=== PATIENT | female | born 1955 | race Caucasian/White ===

== ENCOUNTER 2018-03-18 10:32 | Day surgery (SDC) | payer MEDICARE, OTHER ==
[2018-03-14 09:56] VITALS: BMI 35.4
[~2018-03-18 10:32] MED LIST: SODIUM CHLORIDE 0.9% 1,000 ML IV SCH; ceFAZolin IN SWFI 2 GM/20 ML SYRINGE IVP ONE
[2018-03-18 11:10] VITALS: RESP 16; TEMP 97.9
[2018-03-18] MEDS ORDERED: SODIUM CHLORIDE 0.9% 500 ML 500 ML IV ONE (11:17)
[2018-03-18 11:32] LABS: HGB 9.6 gm/dL (11.4-16.0); Hypochromasia Marked; MCH 22.4 pg (25.0-35.0); MCHC 30.1 g/dL (31.0-37.0); MCV 74.5 fL (80.0-100.0); Microcytosis Slight; Platelet Count 363 k/uL (150-450); RDW 15.3 % (11.5-15.5); WBC 11.4 k/uL (3.8-10.6)
[2018-03-18 11:45] LABS: Anion Gap 6 mmol/L; Blood Urea Nitrogen 19 mg/dL (7-17); Carbon Dioxide 26 mmol/L (22-30); Chloride 107 mmol/L (98-107); Glucose 89 mg/dL (74-99); Sodium 139 mmol/L (137-145)
[2018-03-18 11:56] LABS: Potassium 5.9 mmol/L (3.5-5.1)
[2018-03-18] MEDS ORDERED: fentaNYL (PF) 50 MCG/ML 2 ML AMP IV ONE (13:04)
[2018-03-18] MEDS ORDERED: LIDOCAINE 1% (PF) 10MG/ML VIAL SQ ONE (13:09)
--- NOTE | 2018-03-18 13:33 | P.PCN ---
Preoperative Diagnosis: Diagnosis Atrial fibrillation, paroxysmal Loop monitor implant Primary physicians: Dr. Vega Dental Office Assistant: Dr. Mariee Indication: A. fib management Patient was brought to the EP lab in a fasting state. Written informed consent was obtained prior to the procedure. The left pectoral area was prepped and draped per protocol. Intravenous antibiotic was administered preoperatively. A subcutaneous Loop monitor was implanted successfully and the wound was closed per protocol. The device was programmed to detect significant capri- arrhythmic and tachy-arrhythmic events, per protocol. Device and programming details: A. fib detection Patient underwent EP procedure under conscious sedation/moderate sedation, monitoring of the level of consciousness and physiologic parameters including but not limited to vital signs and oxygenation. Patient tolerated the procedure well without any acute complications. Start time: 1307 Stop time: 1316 Disposition: same day
[2018-03-18 14:40] VITALS: PULSE 75
[2018-03-18 14:41] VITALS: BP 127/70
--- NOTE | 2018-03-20 11:04 | P.PRLE ---
RE: Eva De Anda Dear Guero Velasquez underwent implantation of a loop monitor for A. fib management. She is already on anticoagulation I will send you a follow-up note if there are any changes in her medication or treatment plan Thank you for entrusting me with the care of the patient Warm regards Sincerely Gentry Amador
== END 2018-03-18 14:16 | disposition home or self-care (01) ==
LOC: CATHEP 10:32
PROVIDERS: ATTEND Internal Medicine Clinical Cardiac Electrophysiology
DX: I48.0 Paroxysmal atrial fibrillation (principal); I10 Essential (primary) hypertension; I47.1 Supraventricular tachycardia; E78.5 Hyperlipidemia, unspecified; J45.909 Unspecified asthma, uncomplicated; Z82.49 Family history of ischemic heart disease and other diseases of the circulatory system; Z79.899 Other long term (current) drug therapy; Z79.01 Long term (current) use of anticoagulants; Z79.1 Long term (current) use of non-steroidal anti-inflammatories (NSAID); Z88.5 Allergy status to narcotic agent; Z88.8 Allergy status to other drugs, medicaments and biological substances
CPT/HCPCS: 33285; 80048; 85027; C1764; J3010; J2001; J0690

== ENCOUNTER → 2018-07-22 | Outpatient (CLI) | payer MEDICARE, OTHER ==
[2018-07-22 11:02] LABS: Anion Gap 5.5 mmol/L (4.00-12.00); Calcium 8.6 mg/dL (8.7-10.3); Carbon Dioxide 32.5 mmol/L (21.6-31.8); Potassium 3.9 mmol/L (3.5-5.5)
== END | disposition home or self-care (01) ==
LOC: LABWHC1 07:18
PROVIDERS: ATTEND Nurse Practitioner Adult Health
DX: I10 Essential (primary) hypertension (principal)
CPT/HCPCS: 36415; 80048; 83735

== ENCOUNTER → 2018-07-23 | Day surgery (SDC) | payer MEDICARE, OTHER ==
[2018-07-22 12:54] VITALS: BMI 38.3
[~2018-07-23] MED LIST changes: +ACETAMINOPHEN TAB 325 MG TAB ONE; +ACETAMINOPHEN TAB 325 MG TAB PO PRN; +ALPRAZolam 0.25 MG TAB PO PRN; +ALPRAZolam 0.5 MG TAB PO PRN; +ASPIRIN 325 MG TAB PO STA; +ATORVASTATIN 80 MG TAB PO STA; +HEPARIN SODIUM 1,000 UN/ML (10ML VL) ONE; +IOPAMIDOL-370 125ML BTL INJ ONE; +LIDOCAINE 1% INJ 10MG/ML (20 ML MDV) ONE; +LIDOCAINE 1% INJ 10MG/ML (20 ML MDV) SQ ONE; +MIDAZOLAM (PF) 2 MG/2 ML VIAL IV ONE; +NITROGLYCERIN SL TABS 0.4 MG TAB SUBLINGUAL PRN; +ONDANSETRON 4 MG/2 ML VIAL IVP STA; +ONDANSETRON 4 MG/2 ML VIAL ONE; +RX INFO: IV CONTRAST WAS GIVEN 1 EACH MISC MISCELLANE PRN; +SODIUM CHLORIDE 0.9% 1,000 ML IV ONE; +SODIUM CHLORIDE 0.9% 1,000 ML in EMPTY BAG 1 BAG IV ONE; +VERAPAMIL 2.5 MG/ML 2 ML AMP ONE; -ceFAZolin IN SWFI 2 GM/20 ML SYRINGE IVP ONE
[2018-07-23 08:16] VITALS: RESP 18; TEMP 97.6
[2018-07-23 08:35] LABS: Basophils % (A) 0 %; Eosinophils # (A) 0.3 k/uL (0-0.7); Eosinophils % (A) 4 %; HCT 30.9 % (34.0-46.0); HGB 8.9 gm/dL (11.4-16.0); Hypochromasia Marked; Lymphocytes # (A) 1.6 k/uL (1.0-4.8); Lymphocytes % (A) 23 %; MCH 20.4 pg (25.0-35.0); MCHC 28.7 g/dL (31.0-37.0); Microcytosis Moderate; Monocytes # (A) 0.5 k/uL (0-1.0); Monocytes % (A) 7 %; Neutrophils # (A) 4.5 k/uL (1.3-7.7); Neutrophils % (A) 64 %; Platelet Count 393 k/uL (150-450); RBC 4.35 m/uL (3.80-5.40); RDW 15.7 % (11.5-15.5); WBC 7.1 k/uL (3.8-10.6)
[2018-07-23] MEDS: VERAPAMIL SYRINGE (5 MG/10 ML) INTRAARTER ONE ×2 (11:39→11:45)
[2018-07-23 16:49] VITALS: BP 120/58; PULSE 74
--- NOTE | 2018-07-23 18:14 | CC ---
CARDIAC CATHETERIZATION REPORT DATE OF SERVICE: July 23, 2018 PERFORMING PHYSICIAN: Tristian Helms MD. PROCEDURE PERFORMED: 1. Selective right and left coronary angiogram. 2. Left heart catheterization. INDICATION: This is a pleasant 63-year-old female patient who was experiencing shortness of breath with exertion and she underwent myocardial perfusion imaging stress test and that revealed reversible defect. Because of that, a heart catheterization was advised. APPROACH: Right radial artery. COMPLICATION: None. LEVEL OF SEDATION: Moderate with sedation length of 10 minutes. PROCEDURE DESCRIPTION: After obtaining an informed consent, the patient was brought to the cardiac equipment operator/laborer. The right radial artery was cannulated using micropuncture technique, the micropuncture wire passed easily. Then I placed a 6-[place]otswan[place] sheath in the right radial artery. After that I gave the patient 2 mg of verapamil IA and 10,000 units of heparin IV. Subsequently I did selective right and left coronary angiogram using JR4 and JL3.5 catheters. Left heart catheterization was performed using 6-Botswanan pigtail catheter. The procedure was completed without any complication. SELECTIVE CORONARY ANGIOGRAM: 1. The right coronary artery is a large caliber vessel and is a dominant vessel and appeared to be angiographically normal. It distally bifurcates into PDA and PLV branches, both appeared to be angiographically normal. 2. The left main is angiographically normal. It bifurcates into left circumflex, ramus intermedius, and left anterior descending artery. 3. The left circumflex is a large caliber vessel. It is a nondominant vessel and appears to be angiographically normal. It gives rise into 3 obtuse marginal branches they appear to be angiographically normal. 4. The ramus intermedius is a large caliber vessel and seems to be angiographically normal. 5. The LAD is angiographically normal. HEMODYNAMICS: The left ventricular end-diastolic pressure was 10 mmHg without significant gradient across aortic valve. CONCLUSION: 1. Normal coronary angiogram. 2. Normal left ventricular end-diastolic pressure. POSTPROCEDURE MANAGEMENT: 1. Maximize medical treatment. 2. Follow up with the patient. MMODL / IJN: [id number] /
== END ==
LOC: CATHCVL 07:49
PROVIDERS: ATTEND Internal Medicine Interventional Cardiology
DX: R07.89 Other chest pain (principal); R94.39 Abnormal result of other cardiovascular function study; R06.02 Shortness of breath; R53.83 Other fatigue; I48.0 Paroxysmal atrial fibrillation; I49.3 Ventricular premature depolarization; I10 Essential (primary) hypertension; E78.5 Hyperlipidemia, unspecified; J45.909 Unspecified asthma, uncomplicated; M79.89 Other specified soft tissue disorders; Z82.49 Family history of ischemic heart disease and other diseases of the circulatory system; Z79.01 Long term (current) use of anticoagulants; Z79.1 Long term (current) use of non-steroidal anti-inflammatories (NSAID); Z79.899 Other long term (current) drug therapy; Z88.6 Allergy status to analgesic agent; Z88.5 Allergy status to narcotic agent; Z88.8 Allergy status to other drugs, medicaments and biological substances
CPT/HCPCS: 93458; 85025; C1769; C1894; J2405; J2001; J1644; Q9967; J2250

== ENCOUNTER → 2018-08-12 | Outpatient (CLI) | payer MEDICARE, OTHER ==
[2018-08-12 15:32] LABS: Potassium 4.9 mmol/L (3.5-5.1)
[2018-08-12 16:22] LABS: Anisocytosis Slight; HCT 29.9 % (34.0-46.0); HGB 8.5 gm/dL (11.4-16.0); Hypochromasia Marked; MCHC 28.4 g/dL (31.0-37.0); Mean Platelet Volume 7.8; Microcytosis Moderate; Platelet Count 403 k/uL (150-450); RBC 4.04 m/uL (3.80-5.40); RDW 17.8 % (11.5-15.5); WBC 7.5 k/uL (3.8-10.6)
== END | disposition home or self-care (01) ==
LOC: LABPAT 14:20
PROVIDERS: ATTEND Internal Medicine Clinical Cardiac Electrophysiology
DX: Z01.812 Encounter for preprocedural laboratory examination (principal); I47.1 Supraventricular tachycardia; R94.39 Abnormal result of other cardiovascular function study
CPT/HCPCS: 36415; 80051; 82565; 82947; 84520; 85027

== ENCOUNTER → 2018-08-19 | Outpatient (CLI) | payer MEDICARE, OTHER ==
[2018-08-19 16:23] LABS: Anion Gap 6.8 mmol/L (4.00-12.00); BUN/Creat Ratio 16.67 Ratio (12.00-20.00); Calcium 8.7 mg/dL (8.7-10.3); Carbon Dioxide 29.2 mmol/L (21.6-31.8)
== END | disposition home or self-care (01) ==
LOC: LABWHC1 09:23
PROVIDERS: ATTEND Nurse Practitioner Adult Health
DX: I10 Essential (primary) hypertension (principal)
CPT/HCPCS: 36415; 80048; 83735

== ENCOUNTER 2018-08-26 14:16 | Day surgery (SDC) | payer MEDICARE, OTHER ==
[~2018-08-26 14:16] MED LIST changes: -ACETAMINOPHEN TAB 325 MG TAB ONE; -ACETAMINOPHEN TAB 325 MG TAB PO PRN; -HEPARIN SODIUM 1,000 UN/ML (10ML VL) ONE; -IOPAMIDOL-370 125ML BTL INJ ONE; -LIDOCAINE 1% INJ 10MG/ML (20 ML MDV) ONE; -LIDOCAINE 1% INJ 10MG/ML (20 ML MDV) SQ ONE; -MIDAZOLAM (PF) 2 MG/2 ML VIAL IV ONE; -ONDANSETRON 4 MG/2 ML VIAL IVP STA; -ONDANSETRON 4 MG/2 ML VIAL ONE; -RX INFO: IV CONTRAST WAS GIVEN 1 EACH MISC MISCELLANE PRN; -SODIUM CHLORIDE 0.9% 1,000 ML IV ONE; -SODIUM CHLORIDE 0.9% 1,000 ML IV SCH; -VERAPAMIL 2.5 MG/ML 2 ML AMP ONE
[2018-08-26] MEDS ORDERED: LIDOCAINE 1% INJ 10MG/ML (20 ML MDV) SQ ONE (19:07)
[2018-08-26] MEDS ORDERED: MIDAZOLAM (PF) 2 MG/2 ML VIAL IV ONE (19:07)
[2018-08-26] MEDS ORDERED: METOPROLOL TARTRATE 5 MG/5 ML VIAL IVP ONE ×2 (19:31→19:33)
[2018-08-26 19:51] LABS: O2 Sat Blood Gas 63.1 %
[2018-08-26 19:53] LABS: O2 Sat Blood Gas 97.9 %
[2018-08-26 19:59] LABS: O2 Sat Blood Gas 95.2 %
[2018-08-26] MEDS ORDERED: ACETAMINOPHEN TAB 325 MG TAB PO PRN (20:04)
[2018-08-26] MEDS ORDERED: ACETAMINOPHEN IV (For NPO) 1,000 MG in EMPTY BAG 1 BAG IVPB ONE (20:10)
[2018-08-26] MEDS ORDERED: HYDROcodone/APAP 5-325MG 1 EACH TAB PO PRN (20:10)
[2018-08-26] MEDS ORDERED: ALBUTEROL NEBULIZED 2.5 MG/3 ML INHALATION PRN (20:13)
[2018-08-26] MEDS ORDERED: ALPRAZolam 0.25 MG TAB PO PRN (20:13)
[2018-08-26] MEDS ORDERED: METOPROLOL TARTRATE 50 MG TAB PO STA (20:16)
--- NOTE | 2018-08-26 20:22 | P.PCN ---
Preoperative Diagnosis: Diagnosis Elevated right ventricular systolic pressures by transthoracic echo Assessment for ASD Patient was brought to the pathology laboratory technologist in a fasting state Treatments informed consent was obtained prior to the procedure did the right groin was prepped and draped as a protocol and 8-Albanian venous sheath was placed in the right femoral vein and via this [place] catheter was placed for right heart catheterization. Subsequently and intracardiac echo cath was placed and a bubble study is performed and the interatrial septum was interrogated. The RV septum was also interrogated Pulmicort 3 wedge pressure 17 mmHg Pulmonary artery pressures 39 mmHg RV pressures of 40 mmHg RA pressure 17 mmHg IVC 16 mmHg Cardiac index 3.65 Oxygen saturations were measured Pulmicort 3 wedge position nighty 7.9% Pulmonary artery 64% Right ventricle 59% Right atrium 59 sent IVC 59% Femoral artery 95.2% Cardiac index by Dylan method 3.94 Interatrial septum was interrogated on intracardiac echo. A bubble study is performed. It was no evidence for ASD. No clear-cut PFO was noted and the bubble study confirmed absence of any right to left shunting The catheter was then placed in the right ventricle and interventricular septum was interrogated and no obvious VSD was noted Impression Mild to moderate pulmonary hypertension Pulmicort 3 wedge pressure of 70 mmHg is similar to the LV EDP that was noted in 2006 No evidence for ASD or right to left shunting at the interatrial level
--- NOTE | 2018-08-26 20:23 | P.PRLE ---
RE: Eva De Anda Dear Guero De Anda underwent a right heart cath and intracardiac echo. She has mild to moderate pulmonary hypertension in the mid 30s, maximum of 40 mmHg. LV EDP in 2006 over 70 mmHg and this time upon wake up 3 wedge pressure is also 17 mmHg. Therefore she has remained stable for many years Intracardiac echo and bubble study did not reveal evidence for ASD nor any right to left shunting at the atrial level Thank you for entrusting me with the care of the patient Warm regards Sincerely Gentry Amador
[2018-08-26] MEDS ORDERED: TEMAZEPAM 30 MG CAP PO PRN (21:00)
[2018-08-26] MEDS ORDERED: METOPROLOL TARTRATE 25 MG TAB PO SCH (21:00)
[2018-08-26] MEDS ORDERED: PANTOPRAZOLE 40 MG TABLET PO SCH (21:00)
[2018-08-26] MEDS ORDERED: RIVAROXABAN 20 MG TAB PO SCH (21:00)
[2018-08-26] MEDS: DULoxetine HCL 60 MG CAPSULE.DR PO SCH (22:09)
[2018-08-26] MEDS: POTASSIUM CHLORIDE ER 10 MEQ TAB.ER.PRT PO SCH (22:09)
[2018-08-26] MEDS: GABAPENTIN 300 MG CAP PO SCH (22:10)
[2018-08-27 06:32] VITALS: BMI 38.2
[2018-08-27 08:44] VITALS: BP 109/71; PULSE 77; RESP 18; TEMP 98.1
[2018-08-27] MEDS: POTASSIUM CHLORIDE ER 10 MEQ TAB.ER.PRT PO SCH (08:55)
[2018-08-27] MEDS: GABAPENTIN 300 MG CAP PO SCH (08:55)
[2018-08-27] MEDS: DULoxetine HCL 60 MG CAPSULE.DR PO SCH (08:56)
[2018-08-27] MEDS ORDERED: METOPROLOL TARTRATE 50 MG TAB PO SCH (09:00)
[2018-08-27] MEDS ORDERED: ATORVASTATIN 20 MG TAB PO SCH (09:00)
[2018-08-27] MEDS ORDERED: FUROSEMIDE 20 MG TAB PO SCH (09:00)
--- NOTE | 2018-08-27 10:34 | P.DS ---
Providers Attending physician: Gentry Amador Primary care physician: [facility] Course: Patient is doing well. She has no chest discomfort dizziness lightheadedness palpitations. No groin pain no swelling Vitals are stable Breath sounds are clear no rhonchi no crackles Afebrile 98.1F pulse rate in the 60s and 70s respirations normal Blood pressure 137 of 68 mmHg Heart sounds are normal no murmurs or gallops or rub Breath sounds are clear Abdomen is soft nontender Groin reveals well no hematoma Impression Mild to moderate pulmonary hypertension is noninvasive studies with the hallway artery pressures of about 36. His mercury Pulmonary complete wedge pressure of 17 mmHg exactly similar to what was in 2017 Cardiac index of around 3.2 No evidence for ASD with intracardiac echo all with a bubble study during intracardiac echo Plan Patient will be discharged home today and will follow-up with me in about 1-2 weeks No changes in medications Plan - Discharge Summary Discharge Rx Participant: No New Discharge Prescriptions: No Action Albuterol Sulfate [Proair Hfa] 2 puff INHALATION Q6HR PRN PRN Reason: ASTHMA SX Esomeprazole Magnesium [NexIUM] 40 mg PO HS DULoxetine HCL [Cymbalta] 60 mg PO BID ALPRAZolam [Xanax] 0.25 mg PO BID PRN PRN Reason: Anxiety Metoprolol Tartrate [Lopressor] 25 mg PO HS Gabapentin [Neurontin] 300 mg PO TID Eszopiclone [Lunesta] 3 mg PO HS rOPINIRole HCL [Requip] 2 mg PO HS Furosemide [Lasix] 40 mg PO Q2D Cetirizine HCl [Zyrtec] 10 mg PO DAILY Atorvastatin [Lipitor] 20 mg PO QAM Rivaroxaban [Xarelto] 20 mg PO HS Metoprolol Tartrate [Lopressor] 50 mg PO DAILY Furosemide [Lasix] 60 mg PO Q2D Potassium Gluconate 99 mg PO BID Ferrous Sulfate [Iron (65 MG Elemental)] 325 mg PO DAILY Discharge Medication List ALPRAZolam [Xanax] 0.25 mg PO BID PRN 07/24/14 [History] Albuterol Sulfate [Proair Hfa] 2 puff INHALATION Q6HR PRN 07/24/14 [History] DULoxetine HCL [Cymbalta] 60 mg PO BID 07/24/14 [History] Esomeprazole Magnesium [NexIUM] 40 mg PO HS 07/24/14 [History] Eszopiclone [Lunesta] 3 mg PO HS 03/14/18 [History] Gabapentin [Neurontin] 300 mg PO TID 03/14/18 [History] Metoprolol Tartrate [Lopressor] 25 mg PO HS 03/14/18 [History] Atorvastatin [Lipitor] 20 mg PO QAM 07/22/18 [History] Cetirizine HCl [Zyrtec] 10 mg PO DAILY 07/22/18 [History] Furosemide [Lasix] 40 mg PO Q2D 07/22/18 [History] rOPINIRole HCL [Requip] 2 mg PO HS 07/22/18 [History] Ferrous Sulfate [Iron (65 MG Elemental)] 325 mg PO DAILY 08/19/18 [History] Furosemide [Lasix] 60 mg PO Q2D 08/19/18 [History] Metoprolol Tartrate [Lopressor] 50 mg PO DAILY 08/19/18 [History] Potassium Gluconate 99 mg PO BID 08/19/18 [History] Rivaroxaban [Xarelto] 20 mg PO HS 08/19/18 [History] Follow up Appointment(s)/Referral(s): Gentry Amador MD [STAFF PHYSICIAN] - 1 Week (1-2 Weeks) Patient Instructions/Handouts: Right Heart Catheterization (DC)
[2018-08-28] MEDS ORDERED: FUROSEMIDE 40 MG TAB PO SCH (09:00)
== END 2018-08-27 11:33 | disposition home or self-care (01) ==
LOC: CATHEP 14:16 → 1SOBS 19:46 → CATHEP 08-27 11:33
PROVIDERS: ATTEND Internal Medicine Clinical Cardiac Electrophysiology
DX: I27.20 Pulmonary hypertension, unspecified (principal); I47.1 Supraventricular tachycardia; Z82.49 Family history of ischemic heart disease and other diseases of the circulatory system; J45.909 Unspecified asthma, uncomplicated; F41.9 Anxiety disorder, unspecified; Z88.6 Allergy status to analgesic agent; Z88.5 Allergy status to narcotic agent; Z88.8 Allergy status to other drugs, medicaments and biological substances; Z79.01 Long term (current) use of anticoagulants; Z79.1 Long term (current) use of non-steroidal anti-inflammatories (NSAID); Z79.899 Other long term (current) drug therapy
CPT/HCPCS: 93451; 93662; 85018; 82810; C1894; C1769 ×3; C1759; J2001; J2250

== ENCOUNTER 2018-09-14 15:12 | Observation (INO) | payer MEDICARE, OTHER ==
--- NOTE | 2018-09-14 16:13 | ED ---
General Adult HPI - General Source: patient Mode of arrival: EMS Limitations: no limitations <Adria Parks - Last Filed: 09/14/18 17:43> <Princess Olvera - Last Filed: 09/14/18 21:51> - General Chief complaint: Chest Pain Stated complaint: Chest pain Time Seen by Provider: 09/14/18 15:29 - History of Present Illness Initial comments: Dictation was produced using [employer] dictation software. please excuse any grammatical, word or spelling errors. Chief Complaint: 63-year-old feel past medical history of paroxysmal atrial fibrillation asthma, heart attack presents with chest pain. History of Present Illness: 63-year-old female she presents today with sharp chest pain. She reports that it substernal radiates to her back and to her right upper extremity. Patient states that it also radiates sometimes to her jaw. She reports that the pain started approximately 2 hours prior to arrival. Patient has cardiac history. She had a recent catheterization which was found to be normal. Patient has any cardiac stent placement. Catheterization was performed last month found to be within acceptable limits without any diseased vessels. Patient has any constitutional symptoms. No cough. She initially thought that it was some mild reflux. And eyes any neurologic deficits to her extremities. Does report some shortness of breath. The ROS documented in this emergency department record has been reviewed and confirmed by me. Those systems with pertinent positive or negative responses have been documented in the HPI. All other systems are other negative and/or noncontributory. PHYSICAL EXAM: General Impression: Alert and oriented x3, acute distress secondary to pain. HEENT: Normocephalic atraumatic, extra-ocular movements intact, pupils equal and reactive to light bilaterally, mucous membranes moist. Cardiovascular: Heart regular rate and rhythm, S1&S2 audible, no murmurs, rubs or gallops Chest: Lungs clear to auscultation bilaterally, no rhonchi, no wheeze, no rales Abdomen: Bowel sounds present, abdomen soft, non-tender, non-distended, no organomegaly Musculoskeletal: Pulses present and equal in all extremities, no peripheral edema Motor: no focal deficits noted Neurological: CN II-XII grossly intact, no focal motor or sensory deficits noted Skin: Intact with no visualized rashes Psych: Normal affect and mood ED course: 63 yo female presents with sharp chest pain with radiation to the back and upper extremity. She states pain is severe and sharp. Signs upon arrival are within acceptable limits. EKG is benign. Return evaluation obtained showing no acute processes. Patient care is signed out to Dr. Olvera following imaging studies and further care. EKG interpretation: Ventricular rate 74, normal sinus rhythm,. 186, care 76, QTC 424. No AL prolongation, no QTC prolongation, no ST or T-wave changes noted. Overall, this EKG is unremarkable (Adria Parks) - Related Data Home Medications Medication Instructions Recorded Confirmed ALPRAZolam [Xanax] 0.25 mg PO BID PRN 07/24/14 09/14/18 Albuterol Sulfate [Proair Hfa] 2 puff INHALATION Q6HR PRN 07/24/14 09/14/18 DULoxetine HCL [Cymbalta] 60 mg PO BID 07/24/14 09/14/18 Esomeprazole Magnesium [NexIUM] 40 mg PO HS 07/24/14 09/14/18 Eszopiclone [Lunesta] 3 mg PO HS 03/14/18 09/14/18 Gabapentin [Neurontin] 300 mg PO TID 03/14/18 09/14/18 Metoprolol Tartrate [Lopressor] 25 mg PO HS 03/14/18 09/14/18 Atorvastatin [Lipitor] 20 mg PO QAM 07/22/18 09/14/18 Cetirizine HCl [Zyrtec] 10 mg PO DAILY 07/22/18 09/14/18 Furosemide [Lasix] 40 mg PO Q48H 07/22/18 09/14/18 rOPINIRole HCL [Requip] 2 mg PO HS 07/22/18 09/14/18 Ferrous Sulfate [Iron (65 MG 325 mg PO HS 08/19/18 09/14/18 Elemental)] Furosemide [Lasix] 60 mg PO Q48H 08/19/18 09/14/18 Metoprolol Tartrate [Lopressor] 50 mg PO DAILY 08/19/18 09/14/18 Potassium Gluconate 99 mg PO DAILY 08/19/18 09/14/18 Rivaroxaban [Xarelto] 20 mg PO DAILY 08/19/18 09/14/18 Flecainide Acetate 50 mg PO BID 09/14/18 09/14/18 Allergies Allergy/AdvReac Type Severity Reaction Status Date / Time codeine Allergy Unknown Verified 09/14/18 15:53 etodolac [From Lodine] Allergy Unknown Verified 09/14/18 15:53 fluoxetine HCl [From Prozac] Allergy ELEVATED Verified 09/14/18 15:53 BLOOD PRESSURE propranolol HCl Allergy PALPITATION Verified 09/14/18 15:53 [From Inderal LA] S oxcarbazepine AdvReac Confusion Verified 09/14/18 15:53 [From Trileptal] rofecoxib [From Vioxx] AdvReac Hallucinati Verified 09/14/18 15:53 ons venlafaxine HCl AdvReac Hallucinati Verified 09/14/18 15:53 [From Effexor] ons Review of Systems ROS Other: All systems not noted in ROS Statement are negative. <Adria Parks - Last Filed: 09/14/18 17:43> ROS Other: All systems not noted in ROS Statement are negative. <Princess Olvera - Last Filed: 09/14/18 21:51> ROS Statement: Those systems with pertinent positive or pertinent negative responses have been documented in the HPI. Past Medical History Past Medical History: Atrial Fibrillation, Asthma, Chest Pain / Angina, GERD/Reflux, Hyperlipidemia, Hypertension, Memory Impairment, Myocardial Infarction ([place]), Musculoskeletal Disorder, Osteoarthritis ([place]) Additional Past Medical History / Comment(s): See Dr Helms H&P. 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 Hx Intussusception 06/2014, FOLLOWED BY SURGERY. Hx anemia. Last Myocardial Infarction Date:: 2005 History of Any Multi-Drug Resistant Organisms: None Reported Past Surgical History: Appendectomy, Bariatric Surgery, Bladder Surgery, Bowel Resection, Cholecystectomy, Heart Catheterization, Hysterectomy, Joint Replacement Additional Past Surgical History / Comment(s): BILATERAL OVARIAN SURGERY, ECT X7 [place] 1995, gastric bypass, left knee replacement. Past Anesthesia/Blood Transfusion Reactions: Family History of Problems w/ Anesthesia Additional Past Anesthesia/Blood Transfusion Reaction / Comment(s): Dad had problems waking up. Past Psychological History: Anxiety, Bipolar, Depression Smoking Status: Never smoker Past Alcohol Use History: Rare Past Drug Use History: None Reported - Past Family History Sister(s) Family Medical History: Cancer <Adria Parks - Last Filed: 09/14/18 17:43> General Exam Limitations: no limitations <Adria Parks - Last Filed: 09/14/18 17:43> Course Vital Signs 09/14/18 09/14/18 09/14/18 15:18 16:12 17:00 Temperature 98.1 F Pulse Rate 74 75 70 Respiratory 18 18 18 Rate Blood Pressure 125/58 127/64 107/56 O2 Sat by Pulse 98 98 95 Oximetry 09/14/18 18:00 Temperature Pulse Rate 65 Respiratory 18 Rate Blood Pressure 141/72 O2 Sat by Pulse 99 Oximetry Medical Decision Making - Lab Data Result diagrams: 09/14/18 15:32 09/14/18 15:32 <Adria Parks - Last Filed: 09/14/18 17:43> - Lab Data Result diagrams: 09/14/18 15:32 09/14/18 15:32 <Princess Olvera - Last Filed: 09/14/18 21:51> - Medical Decision Making Patient signed out to me by Dr. Parks pending CTPE. Her imaging was negative. The patient continued to have chest pain. She was treated with analgesics and admitted for further cardiac workup. Patient does have a cardiac history, including paroxysmal atrial fibrillation currently being controlled with Flecanide. The patient has a HEART score of 4. I spoke with Dr. Tolbert who is agreeable to admission. Patient currently resting comfortably. 0 Patient complaining of nausea after eating [employer]. Tigan ordered. (Princess Olvera) - Lab Data Lab Results 09/14/18 09/14/18 09/14/18 Range/Units 15:32 15:32 15:32 WBC 7.4 (3.8-10.6) k/uL RBC 4.21 (3.80-5.40) m/uL Hgb 9.5 L (11.4-16.0) gm/dL Hct 32.1 L (34.0-46.0) % MCV 76.4 L (80.0-100.0) fL MCH 22.5 L (25.0-35.0) pg MCHC 29.5 L (31.0-37.0) g/dL RDW 18.7 H (11.5-15.5) % Plt Count 306 (150-450) k/uL Neutrophils % 62 % Lymphocytes % 25 % Monocytes % 8 % Eosinophils % 3 % Basophils % 0 % Neutrophils # 4.5 (1.3-7.7) k/uL Lymphocytes # 1.8 (1.0-4.8) k/uL Monocytes # 0.6 (0-1.0) k/uL Eosinophils # 0.2 (0-0.7) k/uL Basophils # 0.0 (0-0.2) k/uL Hypochromasia Marked Anisocytosis Slight Microcytosis Moderate PT (9.0-12.0) sec INR (<1.2) Sodium 139 (137-145) mmol/L Potassium 4.3 (3.5-5.1) mmol/L Chloride 103 (98-107) mmol/L Carbon Dioxide 30 (22-30) mmol/L Anion Gap 6 mmol/L BUN 14 (7-17) mg/dL Creatinine 0.98 (0.52-1.04) mg/dL Est GFR (CKD-EPI)AfAm 72 (>60 ml/min/1.73 sqM) Est GFR (CKD-EPI)NonAf 62 (>60 ml/min/1.73 sqM) Glucose 96 (74-99) mg/dL Calcium 8.1 L (8.4-10.2) mg/dL Magnesium 2.1 (1.6-2.3) mg/dL Troponin I (0.000-0.034) ng/mL NT-Pro-B Natriuret Pep 571 pg/mL Lipase 84 (23-300) U/L Blood Type Blood Type Confirm Blood Type Recheck Antibody Screen Spec Expiration Date 09/14/18 09/14/18 09/14/18 Range/Units 15:32 15:32 17:30 WBC (3.8-10.6) k/uL RBC (3.80-5.40) m/uL Hgb (11.4-16.0) gm/dL Hct (34.0-46.0) % MCV (80.0-100.0) fL MCH (25.0-35.0) pg MCHC (31.0-37.0) g/dL RDW (11.5-15.5) % Plt Count (150-450) k/uL Neutrophils % % Lymphocytes % % Monocytes % % Eosinophils % % Basophils % % Neutrophils # (1.3-7.7) k/uL Lymphocytes # (1.0-4.8) k/uL Monocytes # (0-1.0) k/uL Eosinophils # (0-0.7) k/uL Basophils # (0-0.2) k/uL Hypochromasia Anisocytosis Microcytosis PT 11.6 (9.0-12.0) sec INR 1.1 (<1.2) Sodium (137-145) mmol/L Potassium (3.5-5.1) mmol/L Chloride (98-107) mmol/L Carbon Dioxide (22-30) mmol/L Anion Gap mmol/L BUN (7-17) mg/dL Creatinine (0.52-1.04) mg/dL Est GFR (CKD-EPI)AfAm (>60 ml/min/1.73 sqM) Est GFR (CKD-EPI)NonAf (>60 ml/min/1.73 sqM) Glucose (74-99) mg/dL Calcium (8.4-10.2) mg/dL Magnesium (1.6-2.3) mg/dL Troponin I <0.012 (0.000-0.034) ng/mL NT-Pro-B Natriuret Pep pg/mL Lipase (23-300) U/L Blood Type Blood Type Confirm AB Positive Blood Type Recheck Antibody Screen Spec Expiration Date 09/14/18 Range/Units 17:45 WBC (3.8-10.6) k/uL RBC (3.80-5.40) m/uL Hgb (11.4-16.0) gm/dL Hct (34.0-46.0) % MCV (80.0-100.0) fL MCH (25.0-35.0) pg MCHC (31.0-37.0) g/dL RDW (11.5-15.5) % Plt Count (150-450) k/uL Neutrophils % % Lymphocytes % % Monocytes % % Eosinophils % % Basophils % % Neutrophils # (1.3-7.7) k/uL Lymphocytes # (1.0-4.8) k/uL Monocytes # (0-1.0) k/uL Eosinophils # (0-0.7) k/uL Basophils # (0-0.2) k/uL Hypochromasia Anisocytosis Microcytosis PT (9.0-12.0) sec INR (<1.2) Sodium (137-145) mmol/L Potassium (3.5-5.1) mmol/L Chloride (98-107) mmol/L Carbon Dioxide (22-30) mmol/L Anion Gap mmol/L BUN (7-17) mg/dL Creatinine (0.52-1.04) mg/dL Est GFR (CKD-EPI)AfAm (>60 ml/min/1.73 sqM) Est GFR (CKD-EPI)NonAf (>60 ml/min/1.73 sqM) Glucose (74-99) mg/dL Calcium (8.4-10.2) mg/dL Magnesium (1.6-2.3) mg/dL Troponin I (0.000-0.034) ng/mL NT-Pro-B Natriuret Pep pg/mL Lipase (23-300) U/L Blood Type AB Positive Blood Type Confirm Blood Type Recheck CABO Indicated Antibody Screen NEGATIVE Spec Expiration Date 09/17/2018 - 6249 Disposition <Adria Parks - Last Filed: 09/14/18 17:43> Decision to Admit Reason: Admit from EC Decision Date: 09/14/18 Decision Time: 20:43 <Princess Olvera - Last Filed: 09/14/18 21:51> Clinical Impression: Chest pain Disposition: ADMITTED IP TO THIS HOSP
--- NOTE | 2018-09-14 16:15 | XR ---
EXAMINATION TYPE: XR chest 1V portable DATE OF EXAM: 09/14/2018 Comparison: None Clinical History: 63 year-old female shortness of breath and chest pain Findings: Loop recorder device is present. Heart upper limits of normal in size. Eventration bilateral hemidiap hragms. Mild interstitial prominence. Hazy density is related to overlying soft tissue. No definite c onsolidation or pleural effusion. Impression: Large patient body habitus. No definite acute cardiopulmonary process.
[2018-09-14 16:26] LABS: Anisocytosis Slight; Basophils % (A) 0 %; Eosinophils # (A) 0.2 k/uL (0-0.7); Eosinophils % (A) 3 %; HCT 32.1 % (34.0-46.0); HGB 9.5 gm/dL (11.4-16.0); Hypochromasia Marked; Lymphocytes # (A) 1.8 k/uL (1.0-4.8); Lymphocytes % (A) 25 %; MCH 22.5 pg (25.0-35.0); MCHC 29.5 g/dL (31.0-37.0); MCV 76.4 fL (80.0-100.0); Mean Platelet Volume 7.7; Microcytosis Moderate; Monocytes # (A) 0.6 k/uL (0-1.0); Monocytes % (A) 8 %; Neutrophils # (A) 4.5 k/uL (1.3-7.7); Neutrophils % (A) 62 %; Platelet Count 306 k/uL (150-450); RBC 4.21 m/uL (3.80-5.40); RDW 18.7 % (11.5-15.5); WBC 7.4 k/uL (3.8-10.6)
[2018-09-14 16:30] LABS: INR 1.1 (<1.2); Prothrombin Time 11.6 sec (9.0-12.0)
[2018-09-14 16:48] LABS: Calcium 8.1 mg/dL (8.4-10.2); Magnesium 2.1 mg/dL (1.6-2.3); Potassium 4.3 mmol/L (3.5-5.1)
[2018-09-14] MEDS ORDERED: ONDANSETRON 4 MG/2 ML VIAL IVP STA (17:07)
--- NOTE | 2018-09-14 18:19 | CT ---
EXAMINATION TYPE: CT angio chest DATE OF EXAM: 09/14/2018 COMPARISON: Radiograph same date HISTORY: 63-year-old female Mid to right sided chest pain radiating upward. TECHNIQUE: Contiguous axial scanning of the chest performed with IV Contrast, patient injected with 8 0 mL of Isovue 370. Coronal/sagittal MIP reconstructions performed. CT DLP: 457.6 mGycm Automated exposure control for dose reduction was used. FINDINGS: Heart limits of normal in size. No pericardial effusion. Aorta normal caliber with conventional branching anatomy. Loop recorder in the subcutaneous tissues left paramedian upper chest. While there is satisfactory opacification of the pulmonary system, there is respiratory motion artifa ct limiting assessment. No large central pulmonary embolus. No definite embolus at the lobar level. M any of the segmental and more distal arterial branches are nondiagnostic for assessment of pulmonary emboli. Mild centrilobular emphysema. Some mosaic attenuation is present. No neris consolidation or pleural e ffusion seen. No thoracic lymphadenopathy by CT size criteria. Visualized upper abdomen shows some postsurgical changes at the GE junction with moderate stool burde n. Bones: Endplate spondylosis lower thoracic spine. IMPRESSION: 1. EXCESSIVE BREATHING MOTION ARTIFACT DEGRADING THE EXAM. NO LARGE CENTRAL PULMONARY EMBOLUS. NO DEF INITE EMBOLUS AT THE LOBAR LEVEL. MOST OF THE SEGMENTAL AND MORE DISTAL ARTERIAL BRANCHES ARE NONDIAG NOSTIC AND EMBOLI IN THESE LOCATIONS CANNOT BE ADEQUATELY EXCLUDED ON THE BASIS OF THIS EXAM. 2. COPD WITH MILD EMPHYSEMA. MOSAIC ATTENUATION SUGGESTS CONCURRENT SMALL AIRWAYS DISEASE.
[2018-09-14] MEDS ORDERED: HYDROcodone/APAP 5-325MG 1 EACH TAB PO STA (20:15)
[2018-09-14] MEDS ORDERED: NALOXONE 0.4 MG/ML 1 ML VIAL IV PRN (20:45)
[2018-09-14] MEDS ORDERED: HYDROcodone/APAP 5-325MG 1 EACH TAB PO PRN (20:45)
[2018-09-14] MEDS ORDERED: ALBUTEROL NEBULIZED 2.5 MG/3 ML INHALATION PRN (20:46)
[2018-09-14] MEDS ORDERED: ALPRAZolam 0.25 MG TAB PO PRN (20:46)
[2018-09-14] MEDS ORDERED: METOPROLOL TARTRATE 25 MG TAB PO SCH (21:00)
[2018-09-14] MEDS ORDERED: PANTOPRAZOLE 40 MG TABLET PO SCH (21:00)
[2018-09-14] MEDS ORDERED: FERROUS SULFATE 325 MG TAB PO SCH (21:00)
[2018-09-14] MEDS ORDERED: TEMAZEPAM 30 MG CAP PO SCH (21:15)
[2018-09-14] MEDS ORDERED: TRIMETHOBENZAMIDE 100 MG/ML 2 ML VIAL IM ONE (22:00)
[2018-09-14] MEDS: GABAPENTIN 300 MG CAP PO SCH (23:23)
[2018-09-14] MEDS: FLECAINIDE 50 MG TAB PO SCH (23:24)
[2018-09-14] MEDS: DULoxetine HCL 60 MG CAPSULE.DR PO SCH (23:24)
[2018-09-15 04:36] LABS: Calcium 8.7 mg/dL (8.4-10.2); Potassium 4.1 mmol/L (3.5-5.1)
[2018-09-15 05:40] LABS: Anisocytosis Slight; Basophils % (A) 1 %; Eosinophils # (A) 0.2 k/uL (0-0.7); Eosinophils % (A) 3 %; HCT 35.3 % (34.0-46.0); Hypochromasia Marked; Lymphocytes # (A) 2.5 k/uL (1.0-4.8); Lymphocytes % (A) 35 %; MCH 22.6 pg (25.0-35.0); MCHC 28.4 g/dL (31.0-37.0); MCV 79.5 fL (80.0-100.0); Mean Platelet Volume 7.2; Microcytosis Slight; Monocytes # (A) 0.5 k/uL (0-1.0); Monocytes % (A) 7 %; Neutrophils # (A) 3.8 k/uL (1.3-7.7); Neutrophils % (A) 53 %; Platelet Count 287 k/uL (150-450); RBC 4.43 m/uL (3.80-5.40); RDW 18.6 % (11.5-15.5); WBC 7.2 k/uL (3.8-10.6)
[2018-09-15] MEDS ORDERED: FUROSEMIDE 40 MG TAB PO SCH (09:00)
[2018-09-15] MEDS ORDERED: LORATADINE 10 MG TAB PO SCH (09:00)
[2018-09-15] MEDS ORDERED: METOPROLOL TARTRATE 50 MG TAB PO SCH (09:00)
[2018-09-15] MEDS ORDERED: ATORVASTATIN 20 MG TAB PO SCH (09:00)
[2018-09-15] MEDS ORDERED: RIVAROXABAN 20 MG TAB PO SCH (09:00)
[2018-09-15] MEDS: DULoxetine HCL 60 MG CAPSULE.DR PO SCH (09:48)
[2018-09-15] MEDS: GABAPENTIN 300 MG CAP PO SCH (09:48)
[2018-09-15] MEDS: FLECAINIDE 50 MG TAB PO SCH (09:48)
--- NOTE | 2018-09-15 10:46 | CONS ---
CONSULTATION HISTORY OF PRESENT ILLNESS: Eva De Anda is a 63-year-old lady with complex cardiac history including paroxysmal atrial fibrillation, dyslipidemia, who is admitted to hospital with chest pain. She complains of chest discomfort, primarily in the precordial area, moderate intensity at rest, pressure-like sensation that radiated to her right arm and right side of her face. She came to the ER and got admitted for the same. EKG does not reveal any ischemic changes. Cardiac enzymes have been negative. The patient had a cardiac catheterization within the last 2 months and had normal coronaries at that time. She is anemic with a hemoglobin of 10. She had a CTA of the chest that is negative for significant pulmonary embolism. I believe patient's chest discomfort is noncardiac and of no significance at this time. She may be discharged home and arrange outpatient followup with Dr. Amador whom she sees regularly. PAST MEDICAL HISTORY: Past medical history is significant for paroxysmal atrial fibrillation, COPD, dyslipidemia, and hypertension. MEDICATIONS: At home include Xarelto 20 daily, flecainide 50 b.i.d., Nexium 40 daily, Cymbalta, Zyrtec, Requip, Lopressor, Neurontin, ProAir, Lasix, Lunesta, Lipitor and Xanax. ALLERGIES: SHE HAS MULTIPLE DRUG ALLERGIES INCLUDING PROZAC, INDERAL, EFFEXOR AND CODEINE. FAMILY HISTORY: Negative for premature coronary artery disease. SOCIAL HISTORY: Is negative for smoking, EtOH abuse, or drug abuse. REVIEW OF SYSTEMS: HEENT is unremarkable. CARDIAC as described above. RESPIRATORY negative. GI negative. negative. ALLERGY/IMMUNOLOGY: Negative. SKIN: Negative. MUSCULOSKELETAL: Negative. ENDOCRINE: Negative. DERM: Negative. CONSTITUTIONAL: Negative. ONCOLOGICAL negative. Rest of the system review is not relevant. PHYSICAL EXAM: Comfortable at rest. Vital signs are stable. There is no jugular venous distention. Chest exam reveals good air entry bilaterally. Heart exam reveals first and second heart sounds. No gallop. An S4 is heard. Abdomen is soft. Exam of extremities did not reveal any edema. Peripheral pulses are felt. LOG COOKER exam did not reveal focal neurological deficits. ASSESSMENT: 1. Precordial chest pain. 2. Paroxysmal atrial fibrillation. PLAN: Patient's chest discomfort is atypical. OK ruled out. Recent normal coronaries. No further workup at this time. MMODL / IJN: [id number] /
[2018-09-15 12:08] VITALS: PULSE 65; RESP 16
[2018-09-15 15:57] VITALS: BP 93/62; TEMP 98.2
--- NOTE | 2018-09-15 16:14 | P.HPIM ---
History of Present Illness Diagnoses: Chest pain, Resolved muscular skeletal disorder Hyperlipidemia History of atrial fibrillation History of asthma Memory impairment Osteoarthritis Hospital course This is a pleasant 63 years old female with past medical history of hypertension, hyperlipidemia, atrial fibrillation, asthma, memory impairment, musculoskeletal disorder, osteoarthritis. Who presents with chest pain, central and to the right side radiating to the back moderate in severity, radiating to the right arm. No associated with dyspnea or nausea vomiting or dizziness. Patient chest pain has resolved now. On admission patient vitals were stable. Labs reviewed showing WBC 7.2K, hemoglobin stable at 10, platelets 287.electrolytes and creatinine within normal limits. 4 sets of troponins are negative. Lipase 84. Chest CTA showing no pulmonary embolisms in the arteries checked, or tach with normal caliber. Chest x-ray showing no acute cardiopulmonary process per radiologist. Patient is already on Xarelto and by mouth Lasix patient has been evaluated by compliance consultant who found this chest discomfort is atypical and [place] was ruled out as patient has recent normal, Moe arteries on cardiac cath. At this time of discharge, patient denies chest pain, denies dyspnea, denies abdominal discomfort or nausea vomiting. No change in urine or bowel habits. No fever. No headache. No weakness or abnormal sensation or numbness. Patient states that she is back to baseline and she wants to go home. Patient states she has scripts at home Problems and management plan were discussed with the patient and he verbalized understanding and acceptance Patient was found stable and can be discharged home however he needs follow-up as an outpatient. Patient was instructed to follow up with her PCP and compliance consultant in 1 week and she verbalized understanding and acceptance. Patient was to make her own appointment as today is weekend. Review of systems CONSTITUTIONAL: No fever, no malaise, no fatigue. HEENT: No recent visual problems or hearing problems. Denied any sore throat. CARDIOVASCULAR: No orthopnea, PND, no palpitations, no syncope. PULMONARY: No shortness of breath, no cough, no hemoptysis. GASTROINTESTINAL: No diarrhea, no nausea, no vomiting, no abdominal pain. Normoactive bowel sounds. NEUROLOGICAL: No headaches, no weakness, no numbness. HEMATOLOGICAL: Denies any bleeding or petechiae. GENITOURINARY: Denies any burning micturition, frequency, or urgency. MUSCULOSKELETAL/RHEUMATOLOGICAL: Denies any joint pain, swelling, or any muscle pain. ENDOCRINE: Denies any polyuria or polydipsia. GENERAL: The patient is alert and oriented x3, not in any acute distress. Well developed, well nourished. HEENT: Pupils are round and equally reacting to light. EOMI. No scleral icterus. No conjunctival pallor. Normocephalic, atraumatic. No pharyngeal erythema. No thyromegaly. CARDIOVASCULAR: S1 and S2 present. No murmurs, rubs, or gallops. PULMONARY: Chest is clear to auscultation, no wheezing or crackles. ABDOMEN: Soft, nontender, nondistended, normoactive bowel sounds. No palpable organomegaly. MUSCULOSKELETAL: No joint swelling or deformity. EXTREMITIES: No cyanosis, clubbing, or pedal edema. NEUROLOGICAL: Gross neurological examination did not reveal any focal deficits. SKIN: No rashes. Time spent more than 35 minutes Review of Systems CONSTITUTIONAL: No fever, no malaise, no fatigue. HEENT: No recent visual problems or hearing problems. Denied any sore throat. CARDIOVASCULAR: No orthopnea, PND, no palpitations, no syncope. PULMONARY: No shortness of breath, no cough, no hemoptysis. GASTROINTESTINAL: No diarrhea, no nausea, no vomiting, no abdominal pain. Normoactive bowel sounds. NEUROLOGICAL: No headaches, no weakness, no numbness. HEMATOLOGICAL: Denies any bleeding or petechiae. GENITOURINARY: Denies any burning micturition, frequency, or urgency. MUSCULOSKELETAL/RHEUMATOLOGICAL: Denies any joint pain, swelling, or any muscle pain. ENDOCRINE: Denies any polyuria or polydipsia. 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 Hx Intussusception 06/2014, FOLLOWED BY SURGERY. Hx anemia. Last Myocardial Infarction Date:: 2005 History of Any Multi-Drug Resistant Organisms: None Reported Past Surgical History: Appendectomy, Bariatric Surgery, Bladder Surgery, Bowel Resection, Cholecystectomy, Heart Catheterization, Hysterectomy, Joint Replacement Additional Past Surgical History / Comment(s): BILATERAL OVARIAN SURGERY, ECT X7 [place] 1995, gastric bypass, left knee replacement. Past Anesthesia/Blood Transfusion Reactions: Family History of Problems w/ Anesthesia Additional Past Anesthesia/Blood Transfusion Reaction / Comment(s): Dad had problems waking up. Past Psychological History: Anxiety, Bipolar, Depression Additional Psychological History / Comment(s): ECT X7 [place] 1995. Smoking Status: Never smoker Past Alcohol Use History: Rare Past Drug Use History: None Reported - Past Family History Father Family Medical History: AFIB, CVA/TIA, Myocardial Infarction ([place]) Mother Family Medical History: COPD Brother(s) Family Medical History: Diabetes Mellitus, Hypertension Son(s) Family Medical History: No Reported History Sister(s) Family Medical History: Cancer Medications and Allergies Home Medications Medication Instructions Recorded Confirmed Type ALPRAZolam [Xanax] 0.25 mg PO BID PRN 07/24/14 09/14/18 History Albuterol Sulfate [Proair Hfa] 2 puff INHALATION Q6HR PRN 07/24/14 09/14/18 History DULoxetine HCL [Cymbalta] 60 mg PO BID 07/24/14 09/14/18 History Esomeprazole Magnesium [NexIUM] 40 mg PO HS 07/24/14 09/14/18 History Eszopiclone [Lunesta] 3 mg PO HS 03/14/18 09/14/18 History Gabapentin [Neurontin] 300 mg PO TID 03/14/18 09/14/18 History Metoprolol Tartrate [Lopressor] 25 mg PO HS 03/14/18 09/14/18 History Atorvastatin [Lipitor] 20 mg PO QAM 07/22/18 09/14/18 History Cetirizine HCl [Zyrtec] 10 mg PO DAILY 07/22/18 09/14/18 History Furosemide [Lasix] 40 mg PO Q48H 07/22/18 09/14/18 History rOPINIRole HCL [Requip] 2 mg PO HS 07/22/18 09/14/18 History Ferrous Sulfate [Iron (65 MG 325 mg PO HS 08/19/18 09/14/18 History Elemental)] Furosemide [Lasix] 60 mg PO Q48H 08/19/18 09/14/18 History Metoprolol Tartrate [Lopressor] 50 mg PO DAILY 08/19/18 09/14/18 History Potassium Gluconate 99 mg PO DAILY 08/19/18 09/14/18 History Rivaroxaban [Xarelto] 20 mg PO DAILY 08/19/18 09/14/18 History Flecainide Acetate 50 mg PO BID 09/14/18 09/14/18 History Allergies Allergy/AdvReac Type Severity Reaction Status Date / Time codeine Allergy Unknown Verified 09/14/18 22:42 etodolac [From Lodine] Allergy Unknown Verified 09/14/18 22:42 fluoxetine HCl [From Prozac] Allergy ELEVATED Verified 09/14/18 22:42 BLOOD PRESSURE propranolol HCl Allergy PALPITATION Verified 09/14/18 22:42 [From Inderal LA] S oxcarbazepine AdvReac Confusion Verified 09/14/18 22:42 [From Trileptal] rofecoxib [From Vioxx] AdvReac Hallucinati Verified 09/14/18 22:42 ons venlafaxine HCl AdvReac Hallucinati Verified 09/14/18 22:42 [From Effexor] ons Physical Exam Vitals: Vital Signs Temp Pulse Pulse Resp BP BP Pulse Ox 09/15/18 12:00 98 F 65 16 100/63 97 09/15/18 07:40 98.4 F 71 17 101/66 97 09/15/18 03:47 97.6 F 71 18 101/56 97 09/14/18 23:01 98.1 F 73 18 115/69 100 09/14/18 22:33 77 18 102/59 96 09/14/18 18:00 65 18 141/72 99 09/14/18 17:00 70 18 107/56 95 09/14/18 16:12 75 18 127/64 98 Intake and Output 09/15/18 09/15/18 09/15/18 06:59 14:59 22:59 Other: Voiding Method Toilet Toilet # Voids 1 1 GENERAL: The patient is alert and oriented x3, not in any acute distress. Well developed, well nourished. HEENT: Pupils are round and equally reacting to light. EOMI. No scleral icterus. No conjunctival pallor. Normocephalic, atraumatic. No pharyngeal erythema. No thyromegaly. CARDIOVASCULAR: S1 and S2 present. No murmurs, rubs, or gallops. PULMONARY: Chest is clear to auscultation, no wheezing or crackles. ABDOMEN: Soft, nontender, nondistended, normoactive bowel sounds. No palpable organomegaly. MUSCULOSKELETAL: No joint swelling or deformity. EXTREMITIES: No cyanosis, clubbing, or pedal edema. NEUROLOGICAL: Gross neurological examination did not reveal any focal deficits. SKIN: No rashes. Results CBC & Chem 7: 09/15/18 03:55 09/15/18 03:55 Labs: Abnormal Lab Results - Last 24 Hours (Table) 09/14/18 09/14/18 09/15/18 Range/Units 15:32 15:32 03:55 Hgb 9.5 L 10.0 L (11.4-16.0) gm/dL Hct 32.1 L (34.0-46.0) % MCV 76.4 L 79.5 L (80.0-100.0) fL MCH 22.5 L 22.6 L (25.0-35.0) pg MCHC 29.5 L 28.4 L (31.0-37.0) g/dL RDW 18.7 H 18.6 H (11.5-15.5) % Glucose (74-99) mg/dL Calcium 8.1 L (8.4-10.2) mg/dL 09/15/18 Range/Units 03:55 Hgb (11.4-16.0) gm/dL Hct (34.0-46.0) % MCV (80.0-100.0) fL MCH (25.0-35.0) pg MCHC (31.0-37.0) g/dL RDW (11.5-15.5) % Glucose 101 H (74-99) mg/dL Calcium (8.4-10.2) mg/dL Thrombosis Risk Factor Assmnt - Choose All That Apply Any of the Below Risk Factors Present?: Yes Each Factor Represents 1 point: Obesity (BMI >25), Swollen legs (current), Varicose veins Other Risk Factors: Yes Each Risk Factor Represents 2 Points: Age 61-74 years Other congenital or acquired thrombophilia - If yes, enter type in comment: No Thrombosis Risk Factor Assessment Total Risk Factor Score: 5 Thrombosis Risk Factor Assessment Level: High Risk
== END 2018-09-15 16:44 | disposition home or self-care (01) ==
LOC: EC 15:12 → 1SOBS 20:45
PROVIDERS: ADMIT Family Medicine; ATTEND Family Medicine
DX: R07.2 Precordial pain (principal); R06.02 Shortness of breath; R11.0 Nausea; I48.0 Paroxysmal atrial fibrillation; J44.9 Chronic obstructive pulmonary disease, unspecified; I25.2 Old myocardial infarction; K21.9 Gastro-esophageal reflux disease without esophagitis; E78.5 Hyperlipidemia, unspecified; I10 Essential (primary) hypertension; M19.90 Unspecified osteoarthritis, unspecified site; R41.3 Other amnesia; D64.9 Anemia, unspecified; M79.89 Other specified soft tissue disorders; I83.90 Asymptomatic varicose veins of unspecified lower extremity; E66.9 Obesity, unspecified; Z68.38 Body mass index [BMI] 38.0-38.9, adult; G25.81 Restless legs syndrome; G90.522 Complex regional pain syndrome I of left lower limb; F41.9 Anxiety disorder, unspecified; F31.9 Bipolar disorder, unspecified; Z79.899 Other long term (current) drug therapy; Z79.01 Long term (current) use of anticoagulants; Z88.5 Allergy status to narcotic agent; Z88.8 Allergy status to other drugs, medicaments and biological substances; Z98.84 Bariatric surgery status; Z90.49 Acquired absence of other specified parts of digestive tract; Z82.49 Family history of ischemic heart disease and other diseases of the circulatory system; Z83.3 Family history of diabetes mellitus; Z82.5 Family history of asthma and other chronic lower respiratory diseases; Z82.3 Family history of stroke; Z80.9 Family history of malignant neoplasm, unspecified
CPT/HCPCS: 96372; 96374; 99285; 36415; 93005; 86900; 86901; 83880; 80048 ×2; 83690; 83735; 84484 ×2; 85025 ×2; 85610; 86850; 71045; 71275; G0378 ×2; J3250; J2405; Q9967

== ENCOUNTER → 2018-11-28 | Day surgery (SDC) | payer MEDICARE, OTHER ==
[2018-11-28 11:36] VITALS: RESP 16; BMI 37.0
[2018-11-28 13:31] VITALS: BP 105/49; PULSE 63; TEMP 97.5
--- NOTE | 2018-11-28 14:03 | USB ---
EXAMINATION TYPE: US biopsy breast VAD RT, MG diagnostic mammo RT wo CAD DATE OF EXAM: 11/28/2018 CLINICAL HISTORY: R92.8 ABN MAMMO. Abnormal ultrasound. Palpable abnormality. TECHNIQUE: Ultrasound guided core biopsy of right breast with clip placement and follow-up two-view mammogram. COMPARISON: Breast ultrasound and mammogram November 01, 2018. FINDINGS: The procedure of ultrasound guided core biopsy was explained to the patient. Benefits, alternatives, and risks were discussed. An informed consent was then obtained. The patient was placed in supine positioning for imaging and for the procedure. Preprocedure ultrasound redemonstrates 5 x 4 mm hypoechoic lesion 9:00 position zone C right breast. The overlying skin was prepped and draped in usual sterile fashion. Lidocaine was used as anesthetic into the skin and subcutaneous tissue up to area of concern in the right breast. A twin was made with surgical scalpel. Under ultrasound guidance, a 12-gauge vacuum assisted biopsy gun device was used to obtain 5 core samples. Following this, a biopsy clip was left in lesion. The patient tolerated the procedure well without any immediate complication. The patient was kept in the radiology department for short stay after the procedure and then discharged home in stable condition. Postprocedure mammogram confirms successful deployment of biopsy clip which is separate from chronic nodularity. Lesion could not be visualized on ultrasound after sampling. IMPRESSION: Successful, uncomplicated ultrasound guided core biopsy of area of concern in the right breast, full pathology results to follow. Low to intermediate index of suspicion noted at time of procedure. Pathology Results: Benign RIGHT BREAST, NINE O'CLOCK, ULTRASOUND GUIDED CORE BIOPSY: Attenuated cyst wall with adjacent scar/fibrosis, chronic inflammation, hemosiderin laden histiocytes, multinucleated giant cell reaction and fat necrosis suggestive of ruptured cyst. Negative for malignancy. Recommendation Follow up ultrasound of the right breast in 6 months. MTDD
== END ==
LOC: RADUSWWP 11:11
PROVIDERS: ATTEND Surgery
DX: N60.01 Solitary cyst of right breast (principal); N64.1 Fat necrosis of breast; N61.0 Mastitis without abscess
CPT/HCPCS: 88305; 77065; 19083; A4648; J2001

== ENCOUNTER → 2019-08-06 | Outpatient (CLI) | payer MEDICARE, OTHER ==
--- NOTE | 2019-08-07 09:39 | MM ---
Reason for exam: follow-up at short interval from prior study. Last mammogram was performed 8 months ago. History: Patient is postmenopausal. Benign US biopsy breast VAD RT of the right breast, November 28, 2018. Physical Findings: Nurse did not find any significant physical abnormalities on exam. MG 3D Diag Mammo W/Cad RT CC, MLO, and XCCM view(s) were taken of the right breast. Prior study comparison: November 28, 2018, right breast MG diagnostic mammo RT wo CAD. November 09, 2017, mammogram. There are scattered fibroglandular densities. Previous mammotome biopsy in the right breast. There is chronic nodularity in the right breast upper outer quadrant compatible with an intramammary node. No significant new findings when compared with previous films. These results were verbally communicated with the patient and result sheet given to the patient on 08/06/19. ASSESSMENT: Negative, BI-RAD 1 RECOMMENDATION: Routine screening mammogram of both breasts in 3 months. Back on schedule for October 2019.
== END | disposition home or self-care (01) ==
LOC: RADMAMWWP 08:54
PROVIDERS: ATTEND Surgery
DX: R92.8 Other abnormal and inconclusive findings on diagnostic imaging of breast (principal)
CPT/HCPCS: 77065; G0279; 77061

== ENCOUNTER 2019-10-09 07:46 | Day surgery (SDC) | payer MEDICARE, OTHER ==
[2019-10-06 10:04] VITALS: BMI 38.4
[~2019-10-09 07:46] MED LIST changes: -ALPRAZolam 0.25 MG TAB PO PRN; -ALPRAZolam 0.5 MG TAB PO PRN; -ASPIRIN 325 MG TAB PO STA; -ATORVASTATIN 80 MG TAB PO STA; +LACTATED RINGERS 1,000 ML IV SCH; -NITROGLYCERIN SL TABS 0.4 MG TAB SUBLINGUAL PRN; -SODIUM CHLORIDE 0.9% 1,000 ML in EMPTY BAG 1 BAG IV ONE
[2019-10-09 08:20] VITALS: RESP 16; TEMP 96.3
[2019-10-09] MEDS ORDERED: LIDOCAINE 1% (10MG/ML) FOR IV START INTRADERMA ONE (08:21)
--- NOTE | 2019-10-09 08:23 | P.GSHP ---
History of Present Illness H&P Date: 10/09/19 Chief Complaint: GERD, dysphagia This is a 64-year-old female who presents today for EGD. Patient history of GERD and dysphagia. Past Medical History Past Medical History: Atrial Fibrillation, Asthma, Chest Pain / Angina, GERD/Reflux, Hyperlipidemia, Hypertension, Memory Impairment, Myocardial Infarction ([place]), Musculoskeletal Disorder, Osteoarthritis (OA) Additional Past Medical History / Comment(s): Memory impairment from ECT (Electroconvulsive Therapy), VARICOSE VEINS, RESTLESS LEG SYNDROME, RSD (Reflex Sympathetic Dystrophy) in left leg, HYPOGLYCEMIA. Hx Intussusception (Intestinal Blockage). Hx anemia. Muscle condiotion, causes sapasms in hands and feet. Last Myocardial Infarction Date:: 2005 History of Any Multi-Drug Resistant Organisms: None Reported Past Surgical History: Appendectomy, Bariatric Surgery, Bladder Surgery, Bowel Resection, Cholecystectomy, Heart Catheterization, Hysterectomy, Joint Replacement, Orthopedic Surgery Additional Past Surgical History / Comment(s): Partial bowel resection. BILATERAL OVARIAN SURGERY, ECT X7 [place] 1995, gastric bypass, left knee replacement, left knee arthroscopy, loop recorder placement. Past Anesthesia/Blood Transfusion Reactions: Family History of Problems w/ Anesthesia Additional Past Anesthesia/Blood Transfusion Reaction / Comment(s): Dad had problems waking up. Slow to wake up after last surgery. Past Psychological History: Anxiety, Bipolar, Depression Additional Psychological History / Comment(s): ECT X7 [place] 1995. Smoking Status: Never smoker Past Alcohol Use History: Rare Past Drug Use History: Marijuana Additional Drug Use History / Comment(s): CBD oil use 1 gel 16.5 mg capsule BID. Aware no use 24 hrs prior to procedure. - Past Family History Father Family Medical History: AFIB, CVA/TIA, Myocardial Infarction ([place]) Mother Family Medical History: COPD Brother(s) Family Medical History: Diabetes Mellitus, Hypertension Son(s) Family Medical History: No Reported History Sister(s) Family Medical History: Cancer, CVA/TIA Additional Family Medical History / Comment(s): Lymphoma. Medications and Allergies Home Medications Medication Instructions Recorded Confirmed Type ALPRAZolam [Xanax] 0.25 mg PO BID PRN 07/24/14 10/06/19 History Albuterol Sulfate [Proair Hfa] 2 puff INHALATION Q6HR PRN 07/24/14 10/06/19 History DULoxetine HCL [Cymbalta] 60 mg PO BID 07/24/14 10/06/19 History Esomeprazole Magnesium [NexIUM] 40 mg PO HS 07/24/14 10/06/19 History Eszopiclone [Lunesta] 3 mg PO HS 03/14/18 10/06/19 History Gabapentin [Neurontin] 300 mg PO TID 03/14/18 10/06/19 History Metoprolol Tartrate [Lopressor] 25 mg PO BID 03/14/18 10/06/19 History Atorvastatin [Lipitor] 20 mg PO Q48H 07/22/18 10/06/19 History Cetirizine HCl [Zyrtec] 10 mg PO DAILY 07/22/18 10/06/19 History rOPINIRole HCL [Requip] 2 mg PO HS 07/22/18 10/06/19 History Ferrous Sulfate [Iron (65 MG 325 mg PO HS 08/19/18 10/06/19 History Elemental)] Rivaroxaban [Xarelto] 20 mg PO DAILY 08/19/18 10/06/19 History Flecainide Acetate 50 mg PO BID 09/14/18 10/06/19 History Cbd Oil 16.5 mg PO BID 10/06/19 10/06/19 History Allergies Allergy/AdvReac Type Severity Reaction Status Date / Time codeine Allergy Unknown Verified 10/06/19 09:33 etodolac [From Lodine] Allergy Unknown Verified 10/06/19 09:33 fluoxetine HCl [From Prozac] Allergy ELEVATED Verified 10/06/19 09:33 BLOOD PRESSURE propranolol HCl Allergy PALPITATION Verified 10/06/19 09:33 [From Inderal LA] S oxcarbazepine AdvReac Confusion Verified 10/06/19 09:33 [From Trileptal] rofecoxib [From Vioxx] AdvReac Hallucinati Verified 10/06/19 09:33 ons venlafaxine HCl AdvReac Hallucinati Verified 10/06/19 09:33 [From Effexor] ons Surgical - Exam Vital Signs Temp Pulse Resp BP Pulse Ox 96.3 F L 66 16 160/70 96 10/09/19 08:18 10/09/19 08:18 10/09/19 08:18 10/09/19 08:18 10/09/19 08:18 - General well developed, well nourished, no distress - Eyes PERRL - ENT normal pinna - Neck no masses - Respiratory normal expansion - Cardiovascular Rhythm: regular - Abdomen Abdomen: soft, non tender Assessment and Plan Assessment: GERD, dysphagia. We'll perform EGD.
[2019-10-09] MEDS ORDERED: PROPOFOL 10 MG/ML 20 ML VIAL IV ONE (08:24)
[2019-10-09] MEDS ORDERED: GLYCOPYRROLATE 0.2 MG/ML 2 ML VIAL ONE (08:24)
[2019-10-09] MEDS ORDERED: LIDOCAINE 1% INJ 10MG/ML (20 ML MDV) ONE (08:24)
--- NOTE | 2019-10-09 08:31 | P.OP ---
Date of Procedure: 10/09/19 Preoperative Diagnosis: GERD Postoperative Diagnosis: Mild esophagitis Procedure(s) Performed: EGD Anesthesia: MAC Surgeon: Luis Castro Pathology: other (Esophagus) Condition: stable Disposition: PACU Description of Procedure: Patient's placed on the endoscopy table in the lateral position. She received IV sedation. The gastroscope placed oropharynx passed in the esophagus. The patient a previous gastric bypass. The gastrojejunal anastomosis just below the GE junction. The jejunum appeared normal. Scope was withdrawn. There was minimal esophagitis seen. A biopsies performed. Of the esophagus. Proximal esophagus appeared normal. Scope was withdrawn for patient.
[2019-10-09 08:52] VITALS: BP 133/83; PULSE 65
== END 2019-10-09 09:04 | disposition home or self-care (01) ==
LOC: ORWHC2ENDO 07:46
PROVIDERS: ATTEND Surgery
DX: K21.0 Gastro-esophageal reflux disease with esophagitis (principal); Z98.84 Bariatric surgery status; R13.10 Dysphagia, unspecified; I48.0 Paroxysmal atrial fibrillation; J45.909 Unspecified asthma, uncomplicated; E78.5 Hyperlipidemia, unspecified; I10 Essential (primary) hypertension; R41.3 Other amnesia; I25.2 Old myocardial infarction; M19.90 Unspecified osteoarthritis, unspecified site; I83.90 Asymptomatic varicose veins of unspecified lower extremity; G25.81 Restless legs syndrome; G90.522 Complex regional pain syndrome I of left lower limb; E16.2 Hypoglycemia, unspecified; D64.9 Anemia, unspecified; Z90.49 Acquired absence of other specified parts of digestive tract; Z90.710 Acquired absence of both cervix and uterus; Z96.652 Presence of left artificial knee joint; Z98.890 Other specified postprocedural states; F41.9 Anxiety disorder, unspecified; F31.9 Bipolar disorder, unspecified; Z82.3 Family history of stroke; Z82.49 Family history of ischemic heart disease and other diseases of the circulatory system; Z82.5 Family history of asthma and other chronic lower respiratory diseases; Z83.3 Family history of diabetes mellitus; Z80.7 Family history of other malignant neoplasms of lymphoid, hematopoietic and related tissues; Z79.01 Long term (current) use of anticoagulants; Z79.899 Other long term (current) drug therapy; Z88.5 Allergy status to narcotic agent; Z88.8 Allergy status to other drugs, medicaments and biological substances
CPT/HCPCS: 88305; 43239; J2001; J2704

== ENCOUNTER → 2020-04-02 | Outpatient (CLI) | payer MEDICARE, OTHER ==
--- NOTE | 2020-04-02 12:37 | MR ---
EXAMINATION TYPE: MR lumbar spine wo/w con DATE OF EXAM: 04/02/2020 12:13 PM COMPARISON: NONE HISTORY: Severe low back pain into rt leg CONTRAST: The patient was injected with 10 mL intravenous Gadavist gadolinium contrast. Multiplanar, MultiSpin echo imaging of the lumbar spine was performed. L1-L2: Normal disc appearance without desiccation. No herniation, protrusion or disc bulging. No ca nal stenosis is present. Foramina are patent bilaterally. L2-L3: Normal disc appearance without desiccation. No herniation, protrusion or disc bulging. No ca nal stenosis is present. Foramina are patent bilaterally. L3-L4: 20% loss of height superior endplate of L3 compatible with a relatively recent fracture. No ev idence of bony retropulsion. Grade 1 anterolisthesis L3 on L4 measuring 5.5 mm. Posterior disc bulge with effacement of the ventral thecal sac and resultant mild central stenosis. Bilateral foraminal en croachment. L4-L5: Mild decreased signal ossified with posterior disc bulge. Mild effacement ventral thecal sac. No evidence for disc herniation or central stenosis. Mild bilateral foraminal encroachment. L5-S1: Normal disc appearance without desiccation. No herniation, protrusion or disc bulging. No ca nal stenosis is present. Foramina are patent bilaterally. Lumbar segments are intact. No paraspinal masses are identified. Conus medullaris has a normal appe arance. IMPRESSION: 1. Mild relatively recent superior endplate compression fracture of L3. No bony retropulsion. Grade 1 anterolisthesis L3 on L4. Central stenosis at this level as well.
== END | disposition home or self-care (01) ==
LOC: RADMRIMAIN 10:50
PROVIDERS: ATTEND Family Medicine
DX: M48.56XA Collapsed vertebra, not elsewhere classified, lumbar region, initial encounter for fracture (principal); M48.061 Spinal stenosis, lumbar region without neurogenic claudication; M43.16 Spondylolisthesis, lumbar region
CPT/HCPCS: 72158; A9585

== ENCOUNTER → 2020-04-19 | Outpatient (CLI) | payer MEDICARE, OTHER ==
--- NOTE | 2020-04-19 12:27 | CT ---
EXAMINATION TYPE: CT lumbar spine wo con DATE OF EXAM: 04/19/2020 10:49 AM COMPARISON: MRI lumbar spine April 02, 2020. Outside lumbar spine x-ray April 09, 2020. HISTORY: Low back pain border. Pain radiating to bilateral thighs causing weakness right leg per homero ent. CT DLP: 1823.2 mGycm Automated exposure control for dose reduction was used. Unenhanced CT of the lumbar spine was performed. Bone and soft tissue window settings are submitted as well as coronal and sagittal reconstructions. I will assume sacralized left L5 segment and hypoplastic bilateral T12 ribs. Given this assumption th ere are 5 lumbar-type vertebra with prominent Schmorl node at the superior T12 endplate. There is per sistent mild to moderate height loss with sclerosis along the superior L3 endplate. There is stable 6 mm grade 1 anterolisthesis L3 on L4. Disc space heights are fairly well maintained. Mild anterior sp urring in the lower thoracic spine. Axial images show the T12-L1 and L1-L2 level to appear within normal limits. Axial images at L2-L3 level show mild broad disc bulge mildly effacing the anterior thecal sac. Mild/ moderate right greater than left facet degenerative changes bilaterally. Mild bilateral anterior infe rior neural foraminal narrowing right greater than left. Axial images at L3-L4 level show spondylolisthesis with moderate broad disc bulge and moderate to adv anced facet arthropathy bilaterally. There is effacement of the anterior and posterior lateral thecal sac. There is [id number] bilateral neural foraminal narrowing. Axial images at L4-L5 level show mild right greater than left mild to moderate facet arthropathy. The re is focal right paracentral disc protrusion. There is mild effacement of the anterior thecal sac. M ild bilateral anterior inferior neural foraminal narrowing. Axial images at L5-S1 level moderate facet arthropathy. Spinal canal is preserved. The bilateral neur al foramina are patent. Haziness of the visualized left mid abdominal mesentery for reference axial image 38 noted. IMPRESSION: 1. Spondylolisthesis and degenerative change L3-L4 level causing most prominent spinal canal effaceme nt or stenosis correlates with recent MRI. Other multilevel degenerative changes as detailed above. S acralized left L5 segment noted. 2. Partial visualization of andres mesentery appearance consistent with mesenteric panniculitis, clini bernard correlation and follow-up advised.
== END ==
LOC: RADCTMAIN 10:30
PROVIDERS: ATTEND Orthopaedic Surgery
DX: M43.16 Spondylolisthesis, lumbar region (principal); M51.16 Intervertebral disc disorders with radiculopathy, lumbar region; M47.26 Other spondylosis with radiculopathy, lumbar region
CPT/HCPCS: 72131

== ENCOUNTER → 2020-05-06 | Outpatient (CLI) | payer MEDICARE, OTHER ==
--- NOTE | 2020-05-10 11:42 | MM ---
Reason for exam: screening (asymptomatic). Last mammogram was performed 9 months ago. History: Patient is postmenopausal. Benign US biopsy breast VAD RT of the right breast, November 28, 2018. Physical Findings: A clinical breast exam by your physician is recommended on an annual basis and results should be correlated with mammographic findings. MG 3D Screening Mammo W/Cad Bilateral CC and MLO view(s) were taken. Prior study comparison: August 06, 2019, right breast MG 3d diag mammo w/cad RT. November 28, 2018, right breast MG diagnostic mammo RT wo CAD. There are scattered fibroglandular densities. Previous mammotome biopsy in the right breast. There is no discrete abnormality. ASSESSMENT: Benign, BI-RAD 2 RECOMMENDATION: Routine screening mammogram of both breasts in 1 year.
== END | disposition home or self-care (01) ==
LOC: RADMAMWWP 16:03
PROVIDERS: ATTEND Family Medicine
DX: Z12.31 Encounter for screening mammogram for malignant neoplasm of breast (principal)
CPT/HCPCS: 77063; 77067

== ENCOUNTER → 2020-05-31 | Outpatient (CLI) | payer MEDICARE, OTHER ==
[2020-05-31 16:35] LABS: Basophils % (A) 0 %; Eosinophils # (A) 0.4 k/uL (0-0.7); Eosinophils % (A) 6 %; HGB 12.2 gm/dL (11.4-16.0); Hypochromasia Slight; Lymphocytes # (A) 2.1 k/uL (1.0-4.8); Lymphocytes % (A) 30 %; MCH 27.4 pg (25.0-35.0); MCHC 32.9 g/dL (31.0-37.0); MCV 83.4 fL (80.0-100.0); Mean Platelet Volume 7.5; Monocytes # (A) 0.5 k/uL (0-1.0); Monocytes % (A) 7 %; Neutrophils # (A) 3.7 k/uL (1.3-7.7); Neutrophils % (A) 55 %; Platelet Count 247 k/uL (150-450); RBC 4.43 m/uL (3.80-5.40); RDW 14.9 % (11.5-15.5); WBC 6.9 k/uL (3.8-10.6)
[2020-05-31 17:01] LABS: INR 1.1 (<1.2); Prothrombin Time 11.3 sec (9.0-12.0)
[2020-05-31 17:58] LABS: Albumin 3.4 g/dL (3.5-5.0); Calcium 8.8 mg/dL (8.4-10.2); Potassium 4.8 mmol/L (3.5-5.1); Total Bilirubin 0.4 mg/dL (0.2-1.3); Total Protein 6.4 g/dL (6.3-8.2)
== END | disposition home or self-care (01) ==
LOC: LABPAT 15:31
PROVIDERS: ATTEND Orthopaedic Surgery
DX: Z01.812 Encounter for preprocedural laboratory examination (principal); Z01.818 Encounter for other preprocedural examination
CPT/HCPCS: 80053; 85025; 85610; 87070

== ENCOUNTER 2020-06-15 05:50 | Observation (INO) | payer MEDICARE, OTHER ==
[2020-06-09 10:13] VITALS: BMI 40.7
--- NOTE | 2020-06-14 16:34 | P.HPOR ---
History of Present Illness H&P Date: 06/09/20 Chief Complaint: Low back pain, leg pain, weakness Patient presents with low back pain. She notes pain for the past 5 weeks. Patient notes pain that radiates into her right side. She also has right lower extremity numbness. She has increased pain with standing from a seated position. Patient wears a back brace with some relief. She takes Flexeril and Motrin daily along with Xarelto. Patient ambulates independently. Eva De Anda is a 64 year old female presenting for evaluation of sudden onset of .low back pain, difficulty with ambulation and debility unable to perform her ADLs refractory to conservative measures It was my pleasure to have seen and examined Ms. De Anda. In our visit today we have had a chance to go over subjective complaints, physical examination findings and treatments, including the natural course history without intervention and various interventional options. The imaging demonstrates L3 VCF, acute with L3-4 Grade I-II spondylolisthesis, unstable . On physical exam, Ms. De Anda demonstrates Severe back pain, LE weakness and radiculopathy as well as difficulty with ambulation and performing ADLs secondary to this . Review of Systems 14 points review of systems completed and as stated in HPI, all other systems reviewed are negative. Past Medical History Past Medical History: Atrial Fibrillation, Asthma, GERD/Reflux, Hyperlipidemia, Hypertension, Memory Impairment, Myocardial Infarction (PA), Musculoskeletal Disorder, Osteoarthritis (OA) Additional Past Medical History / Comment(s): VARICOSE VEINS, RESTLESS LEG SYNDROME, "RSD in left leg (nerve condition)" HYPOGLYCEMIA. Hx Intussusception 06/2014, FOLLOWED BY SURGERY. Hx anemia, dystonia hands-takes cbd oil for Last Myocardial Infarction Date:: 2005 History of Any Multi-Drug Resistant Organisms: None Reported Past Surgical History: Appendectomy, Bariatric Surgery, Bladder Surgery, Bowel Resection, Cholecystectomy, Heart Catheterization, Hysterectomy, Joint Replacement Additional Past Surgical History / Comment(s): BILATERAL OVARIAN SURGERY, bladder/ureter surg. as child, bladder suspension, gastric bypass, left knee replacement. loop recorder placement Past Anesthesia/Blood Transfusion Reactions: No Reported Reaction, Family History of Problems w/ Anesthesia Additional Past Anesthesia/Blood Transfusion Reaction / Comment(s): Dad had problems waking up. Smoking Status: Never smoker - Past Family History Father Family Medical History: AFIB, CVA/TIA, Myocardial Infarction (PA) Mother Family Medical History: COPD Brother(s) Family Medical History: Diabetes Mellitus, Hypertension Son(s) Family Medical History: No Reported History Sister(s) Family Medical History: Cancer, CVA/TIA Medications and Allergies Home Medications Medication Instructions Recorded Confirmed Type Albuterol Sulfate [Proair Hfa] 2 puff INHALATION Q6HR PRN 07/24/14 06/09/20 History DULoxetine HCL [Cymbalta] 60 mg PO BID 07/24/14 06/09/20 History Esomeprazole Magnesium [NexIUM] 40 mg PO HS 07/24/14 06/09/20 History Eszopiclone [Lunesta] 3 mg PO HS 03/14/18 06/09/20 History Gabapentin [Neurontin] 300 mg PO TID 03/14/18 06/09/20 History Atorvastatin [Lipitor] 20 mg PO HS 07/22/18 06/09/20 History Cetirizine HCl [Zyrtec] 10 mg PO DAILY 07/22/18 06/09/20 History rOPINIRole HCL [Requip] 1 mg PO BID 07/22/18 06/09/20 History Ferrous Sulfate [Iron (65 MG 325 mg PO HS 08/19/18 06/09/20 History Elemental)] Rivaroxaban [Xarelto] 20 mg PO DAILY 08/19/18 06/09/20 History Flecainide Acetate 100 mg PO BID 09/14/18 06/09/20 History Cbd Oil 50 mg PO BID 10/06/19 06/09/20 History Calcium/Magnesium/Zinc 1 each PO DAILY 06/09/20 06/09/20 History [Umuvkqh-Cvzdverzc-Lhei Tablet] Cholecalciferol (Vitamin D3) 4,000 unit PO DAILY 06/09/20 06/09/20 History [Vitamin D3 (4,000 Iu)] Cyclobenzaprine [Flexeril] 10 mg PO BID 06/09/20 06/09/20 History Furosemide [Lasix] 20 mg PO DAILY PRN 06/09/20 06/09/20 History Metoprolol Succinate (ER) [Toprol 50 mg PO 1200 06/09/20 06/09/20 History Xl] Allergies Allergy/AdvReac Type Severity Reaction Status Date / Time codeine Allergy abd. Verified 06/09/20 08:07 swelling, increased pain etodolac [From Lodine] Allergy Unknown Verified 06/09/20 08:07 fluoxetine HCl [From Prozac] Allergy ELEVATED Verified 06/09/20 08:07 BLOOD PRESSURE propranolol HCl Allergy PALPITATION Verified 06/09/20 08:07 [From Inderal LA] S oxcarbazepine AdvReac Confusion Verified 06/09/20 08:07 [From Trileptal] rofecoxib [From Vioxx] AdvReac Hallucinati Verified 06/09/20 08:07 ons venlafaxine HCl AdvReac Hallucinati Verified 06/09/20 08:07 [From Effexor] ons Physical Examination Osteopathic Statement: *. No significant issues noted on an osteopathic structural exam other than those noted in the History and Physical/Consult. General: Awake, alert, appropriate for age, in no acute distress. HEENT: No unusual neck masses around region of lateral neck triangle, thyroid, supraclavicular groove Heart: Regular rate and rhythm, normal S1, S2 and no murmur/gallop. Lungs: Clear to auscultation bilaterally with no use of accessory muscles. Extremities: Skin warm and dry without acute lesions, coloration, temperature, skin intact, no tenderness or erythema Integument: Hairy patches: Absent Dorsal skin dimples: Absent Cafe au lait spots: Absent Palpation: Please see Pain drawing on Intake sheet for further detail. Midline spinal tenderness: yes lumbar E6 Paralumbar tenderness: yes bilateral E6 Parathoracic tenderness: No E6 Buttocks tenderness: yes bilateral E6 POSTURAL and MUSCULO-SKELETAL EVALUATION: Coronal Balance: Neutral Recumbent testing: Patient is able to lay flat on back Sagittal Balance: Neutral Lumbar ROM: restricted with pain Hip ROM: Symmetric in abduction, adduction, ER/IR Knee ROM: Symmetric and intact in Flexion / extension VASCULAR STATUS : LEFT RIGHT Wrist Pulses intact intact Pedal Pulses (Dors. pedis & post.tibialis) intact intact Color normal normal Edema Absent Absent NEUROLOGIC EXAMINATION: Mental Status: Awake and alert, fully oriented, with normal attention, concentration and memory, and fluent, appropriate speech. Cranial Nerves: I: Olfactory not tested. II: Visual acuity normal, no visual field deficit noted with confrontation. III,IV: Normal pupillary reflexes & intact extraocular movements without nystagmus. V,: Intact symmetrical facial sensation. VII: Intact symmetrical facial motor movement VIII: Hearing intact. IX,X: Intact gag, swallow, & normal voice. XI: Sternocleidomastoid, trapezius function intact. XII: Tongue midline with normal movements. L'hermitte's Sign: Negative / absent Spurling'Sign: Absent bilaterally. Cubital percussion test: Absent bilaterally. Jayant-Tinel sign - Carpal region: Absent bilaterally. Straight Leg Raising: Absent bilaterally. Crossed straight leg raise: negative O8 MOTOR EXAM (0-5/5, N/T) STRENGTH RIGHT LEFT Shoulder Abd (not part of the RAMONE score) 5 5 Elbow Flexors 5 5 Elbow Extensor 5 5 Wrist Dorsiflexors 5 5 Finger Abductor 5 5 Cable Splicing Technician 5 5 Hip Flexor (Not part of RAMONE Motor score) 5 5 Knee Flexor 5 5 Knee Extensor 5 5 Ankle dorsiflexor 5 5 Ankle plantarflexion 5 5 Extensor hallucis 5 5 REFLEXES(0-4/2, NT) RIGHT LEFT Upper Extremities 3 3 Lower Extremities 3 3 Pathological Reflexes RIGHT LEFT Simpson's Present Absent Clonus Absent Absent Sensory system (0-4, N/T) Test type RU MARLYN RL LL Joint-Position 2 2 2 2 Vibration 2 2 2 2 Pain & LT sense 2 2 2 2 Dermatomal Deficit: none none none none Gait and Functional Evaluation: Romberg's test: Intact bilaterally Toe heel walk / heel-toe walk intact while maintaining satisfactory balance? No Squatting/straightening w/o assistance to a min of 60 degree knee flexion? No Single leg stance: intact Trendelenburg sign negative bilaterally Hand and finger dexterity intact bilaterally? yes Disdiadochokinesis examination negative bilaterally? yes Results XRAY: AP lateral flexion extension views of the lumbar spine demonstrate L3-L4 grade 1 spondylolisthesis. This is unstable in flexion and extension. No other fracture dislocation is noted. Overall alignment is fairly well maintained. AP pelviscongruent femoral S tethered joints level post fracture dislocation. CT of the lumbar spine from 04/19/2020 reveals: Degenerative lumbar spondylolistheis of L3-4 with stenosis related. There is also evidence of previous VCF in this area which is healing. Some superior endplate abnormalities noted. No other fracture or dislocation. Lumbar spondylosis noted. MRI reflects these findings with stenosis, a/c VCF of L3 with Grade I-II anterior listhesis, degenerative of L3-4 with stenosis and associated spondylosis. Assessment and Plan Assessment: 1. L3-4 grade I-II spondylolisthesis, unstable 2. L3 a/c VCF 3. Lumbar spinal stenosis moderate to severe L2-4 4. mechanical back pain 5. Spondylosis L3-4 6. Complex medical patient. Plan: Surgical Procedure Risk Review Eva De Anda is a 64 year old female presenting for evaluation of sudden onset of .low back pain, difficulty with ambulation and debility unable to perform her ADLs refractory to conservative measures It was my pleasure to have seen and examined Ms. De Anda. In our visit today we have had a chance to go over subjective complaints, physical examination findings and treatments, including the natural course history without intervention and various interventional options. The imaging demonstrates L3 VCF, acute with L3-4 Grade I-II spondylolisthesis, unstable . On physical exam, Ms. De Anda demonstrates Severe back pain, LE weakness and radiculopathy as well as difficulty with ambulation and performing ADLs secondary to this . I explained to the patient that as her condition progresses it could cause continued pain, more weakness, more debility . At this time, based on the patients imaging and physical exam, I recommend surgery in the form or a: decompression and fusion of L2-L4 . I discussed the risk and benefits of this procedure at length with Ms. De Anda. The patient and her spouse/partneragreed to consider pursuing the procedure mentioned above. Plan: 1. We plan on performing an L3-4 possibly L2-4 decompression and fusion with cementation of screws at L3 due to fracture. 2. Follow up with PCP for surgical clearance 3. Review of surgical risks and benefits as well as an educational packet on the proposed surgical procedure. Risks: All surgical procedures come with inherent risks, including those related to positioning, anesthesia, intraoperative findings, and postoperative complications. It is important to understand that surgery does not come with any guarantee of a successful outcome as complications and adverse events are always possible. The patient was given a handout in office today discussing the surgical procedure and risks associated with the intervention, both of which were discussed with the patient. These risks include but are not limited to the following: ? Experiencing same, different or even worse symptoms in back, neck, arms, or legs compared to before surgery. ? Requiring further surgery or other forms of treatment presently or at some time in the future at same or other levels of the intended spine surgery. ? On an extreme but fortunately relatively rare basis severe complication such as blindness, stroke, heart attack, temporary and/or permanent nerve in jury, paralysis, coma, or may occur, sometimes without known explanation. ? Surgical complications may include but are not limited to risk of infection, fluid accumulation in the surgical dissection site, including a seroma or hematoma, that requires additional surgery, wound drainage, bleeding, new numbness or weakness, vision changes/loss, spinal fluid leakage, non-healing and/or infected incision, headaches, difficulty or inability to swallow, hoarseness, hemopneumothorax, pneumothorax, impotence, retrograde ejaculation, vaginal dryness; injury to nerves, spinal cord, blood vessels, lymphatics or other vital organs (i.e., bowel injury, injury to the great vessels); heterotopic bone formation; complications related to the hardware such as screws, rods, cages including misplaced hardware, device failure, instrumentation at the wrong spine level, hardware fracture/breakage, or hardware loosening; vertebral failure of the spinal column above or below the newly placed hardware; retained surgical instrumentations or devices and the need for further surgery. ? Medical risks of the planned spine surgery include but are not limited to generalized Infections to the whole body or local areas outside of the surgical site (sepsis), heart attack, bleeding, anaphylaxis, meningitis, seizure, epilepsy, hearing loss, burn rodriguez, laceration of the head or other areas of the body, bruising, hypersensitivity of the skin, bladder over distension; allergic reaction; shoulder injury related to positioning; fat, blood and air clots to other areas of the body like heart, lungs, brain; failure of internal organs such as lungs, kidneys, liver and excessive bleeding. If blood transfusions are necessary, note that transfusions may cause intolerance reactions such as anaphy laxis or other complex reactions. Despite best efforts, the results of spine surgery might not heal in terms of bone, soft tissues such as skin, fascia, ligaments, and joints. Additionally, in order to achieve best possible results, spine surgery may be carried out beyond the initially planned levels and involve decompression, fusion including insertion of hardware at levels other than the original intended area of surgical interest change some portions of the procedure in order to ensure the best possible outcomes. With spine surgery and spinal fusion, there are different off label uses of instrumentation (devices, implants and hardware) as well as biological substances (bone morphogenic proteins, demineralized bone matrix) as well as using extra bone from allograft sources (i.e. cadaver bone) or autograft (iliac crest bone, ribs, or the spine itself). The patient has been given information about these practices and their inherent risks and benefits. Derek Gillis Physician Assistants are medically trained surgical providers who function in the outpatient, inpatient, and operating room setting under the direct supervision of the attending surgeon.They assist in the operating room with direct supervision of the attending surgeons. The patient has had a chance to review all the listed information, has been given print outs detailing this information, and has had all his/her questions answered to their satisfaction. It was my pleasure to have seen and examined Ms. De Anda. In our visit today we have had a chance to go over my understanding of our patient's current condition, the natural course history without intervention and various interventional options. Questions were invited and answered, and the patient wishes to proceed as outlined above. I have seen and examined the patient for 25 minutes and we have spent more than 50% of the time in repeat and detailed counseling about the patient's condition, its natural course history with out and as much as can be predicted with surgery and re-review of various surgical treatment options. In conclusion,Ms. De Anda and her spouse/partner requested we proceed with the above suggested surgery and are willing to accept risks and limitations of the suggested surgery as nature of the disease process and our best attempts at treatment for the condition. Thank you again for allowing us to be part of your patient's care. Please don't hesitate to contact me if you have any further questions. Signed and authenticated by: Milton Wu [facility] [address], [address] [address] Time with Patient: Greater than 30
[~2020-06-15 05:50] MED LIST changes: +ACETAMINOPHEN TAB 500 MG TAB PO PRN; +DEXAMETHASONE SOD PHOSPHATE 4 MG/ML 1 ML VIAL IV ONE; +GABAPENTIN 300 MG CAP PO PRN; -LACTATED RINGERS 1,000 ML IV SCH; +LIDOCAINE 1% (10MG/ML) FOR IV START INTRADERMA PRN; +MIDAZOLAM 2 MG/2 ML VIAL IV PRN; +ONDANSETRON 4 MG/2 ML VIAL IVP ONE; +ONDANSETRON 4 MG/2 ML VIAL IVP PRN; +TRANEXAMIC ACID 1,000 MG in SODIUM CHLORIDE 0.9% 100 ML IVPB PRN
[2020-06-15] MEDS: LACTATED RINGERS 1,000 ML IV SCH (06:40)
[2020-06-15] MEDS ORDERED: LIDOCAINE 1% INJ 10MG/ML (20 ML MDV) ONE (07:51)
[2020-06-15] MEDS ORDERED: SUCCINYLCHOLINE CHLORIDE 100 MG/5 ML SYR IV ONE (07:51)
[2020-06-15] MEDS ORDERED: MIDAZOLAM 2 MG/2 ML VIAL ONE (07:51)
[2020-06-15] MEDS ORDERED: ONDANSETRON 4 MG/2 ML VIAL ONE (07:51)
[2020-06-15] MEDS ORDERED: fentaNYL (PF) 50 MCG/ML 2 ML AMP ONE (07:51)
[2020-06-15] MEDS ORDERED: PROPOFOL 10 MG/ML 20 ML VIAL IV ONE (07:51)
[2020-06-15] MEDS ORDERED: TRANEXAMIC ACID 1,000 MG/10 ML VIAL ONE (07:51)
[2020-06-15] MEDS ORDERED: SODIUM CHLORIDE 0.9% 100 ML BAG ONE (07:51)
[2020-06-15] MEDS ORDERED: ROCURONIUM 10 MG/ML (5 ML VIAL) IV ONE (07:51)
[2020-06-15] MEDS ORDERED: ePHEDrine SULFATE/0.9% NACL/PF 50 MG/5 ML SYRINGE IV ONE (07:51)
[2020-06-15 08:18] LABS: Glucose,Whole Blood 90 mg/dL (75-99)
[2020-06-15] MEDS ORDERED: LACTATED RINGERS 1,000 ML IV ONE ×3 (09:00→14:58)
[2020-06-15] MEDS ORDERED: LIDOCAINE 1%-EPI 1:100,000 20 ML VIAL SQ ONE ×2 (09:19)
[2020-06-15] MEDS ORDERED: THROMBIN (BOVINE) 5,000 UNIT VIAL TOPICAL ONE (09:19)
[2020-06-15] MEDS ORDERED: BUPIVACAINE (PF) 0.25% 30 ML VIAL SQ ONE ×2 (09:19)
[2020-06-15] MEDS ORDERED: VANCOMYCIN 1,000 MG VIAL MISCELLANE ONE (09:19)
--- NOTE | 2020-06-15 13:19 | XR ---
EXAM TYPE: LUMBAR SPINE X RAY SERIES COMPARISON: NONE HISTORY: Postop TECHNIQUE: 17 views are submitted. FINDINGS: Limited intraoperative imaging demonstrates intraoperative surgical change at multiple levels. Resolu tion limited. IMPRESSION: 1. Postoperative changes
--- NOTE | 2020-06-15 13:21 | FL ---
EXAMINATION TYPE: FL guidance operating room DATE OF EXAM: 06/15/2020 HISTORY: Fluoroscopy time 7 minutes and 21 seconds of fluoroscopy provided. IMPRESSION: 1. Fluoroscopy time.
[2020-06-15] MEDS ORDERED: HYDROmorphone 0.5 MG/0.5 ML SYRINGE IVP PRN (13:42)
[2020-06-15] MEDS ORDERED: SENNOSIDES-DOCUSATE SODIUM 1 EACH TAB PO PRN (13:42)
[2020-06-15] MEDS ORDERED: ONDANSETRON 4 MG/2 ML VIAL IVP PRN (13:42)
[2020-06-15] MEDS: HYDROmorphone 0.5 MG/0.5 ML SYRINGE IVP PRN ×4 (13:55→14:28)
[2020-06-15] MEDS: HYDROcodone/APAP 10-325MG 1 EACH TAB PO PRN ×2 (15:50→21:10)
[2020-06-15] MEDS: ceFAZolin 3 GM in SODIUM CHLORIDE 0.9% 100 ML IVPB SCH (15:50)
[2020-06-15] MEDS: ACETAMINOPHEN TAB 325 MG TAB PO SCH ×2 (15:53→20:52)
[2020-06-15] MEDS: 0.9% NACL WITH KCL 20 MEQ/L 1,000 ML IV SCH (16:29)
[2020-06-15] MEDS ORDERED: FUROSEMIDE 20 MG TAB PO PRN (18:18)
--- NOTE | 2020-06-15 18:33 | CT ---
EXAMINATION TYPE: CT lumbar spine wo con DATE OF EXAM: 06/15/2020 COMPARISON: 04/19/2020 HISTORY: Post op, spondylolisthesis L2-L4. CT DLP: 785 mGycm Automated exposure control for dose reduction was used. Images were obtained from the level of L1-S1 without contrast. There is 20% compression deformity of L3 vertebral body. There is vertebroplasty of L3. There is also apparent bone cement in the disc space at L3-4. There is posterior fusion surgery at L3-4 with rods and screws. There is mild anterior subluxation of L3 in relation to L4 of 5 mm. I see no focal bone destruction. There is no paraspinal mass. IMPRESSION: Vertebroplasty at L3 with also some bone cement at the L3-4 disc. There is a L3-4 subluxation without change. Posterior fusion surgery is new compared to old exam. It is not clear if the bone cement in the disc space at L3-4 is leakage from the vertebroplasty.
[2020-06-15] MEDS: FLECAINIDE 50 MG TAB PO SCH (20:51)
[2020-06-15] MEDS: DULoxetine HCL 60 MG CAPSULE.DR PO SCH (20:52)
[2020-06-15] MEDS: ZOLPIDEM 5 MG TAB PO SCH ×2 (20:52→22:37)
[2020-06-15] MEDS: FERROUS SULFATE 325 MG TAB PO SCH (20:52)
[2020-06-15] MEDS: GABAPENTIN 300 MG CAP PO SCH (20:52)
[2020-06-15] MEDS: ATORVASTATIN 20 MG TAB PO SCH (20:52)
[2020-06-15] MEDS: PANTOPRAZOLE 40 MG TABLET PO SCH (20:52)
[2020-06-16] MEDS: ceFAZolin 3 GM in SODIUM CHLORIDE 0.9% 100 ML IVPB SCH (00:04)
[2020-06-16] MEDS: HYDROcodone/APAP 5-325MG 1 EACH TAB PO PRN (03:41)
[2020-06-16] MEDS: ACETAMINOPHEN TAB 325 MG TAB PO SCH ×4 (03:49→20:28)
[2020-06-16] MEDS: LACTATED RINGERS 1,000 ML IV SCH (04:25)
[2020-06-16] MEDS: 0.9% NACL WITH KCL 20 MEQ/L 1,000 ML IV SCH ×2 (05:47→20:35)
[2020-06-16 06:56] LABS: Basophils % (A) 0 %; Eosinophils # (A) 0.1 k/uL (0-0.7); Eosinophils % (A) 1 %; HCT 31.7 % (34.0-46.0); Hypochromasia Moderate; Lymphocytes % (A) 12 %; MCH 26.5 pg (25.0-35.0); MCHC 30.7 g/dL (31.0-37.0); MCV 86.3 fL (80.0-100.0); Mean Platelet Volume 7.9; Monocytes # (A) 0.7 k/uL (0-1.0); Monocytes % (A) 8 %; Neutrophils # (A) 6.4 k/uL (1.3-7.7); Platelet Count 191 k/uL (150-450); RBC 3.68 m/uL (3.80-5.40); RDW 15.7 % (11.5-15.5); WBC 8.3 k/uL (3.8-10.6)
[2020-06-16 07:18] LABS: HGB 9.8 gm/dL (11.4-16.0)
[2020-06-16] MEDS: LORATADINE 10 MG TAB PO SCH (07:51)
[2020-06-16] MEDS: CHOLECALCIFEROL 25 MCG (1000 IU) TABLET PO SCH (07:51)
[2020-06-16] MEDS: DULoxetine HCL 60 MG CAPSULE.DR PO SCH ×2 (07:52→20:28)
[2020-06-16] MEDS: GABAPENTIN 300 MG CAP PO SCH ×3 (07:52→20:29)
[2020-06-16] MEDS: RIVAROXABAN 20 MG TAB PO SCH (08:57)
[2020-06-16] MEDS: FLECAINIDE 50 MG TAB PO SCH ×2 (08:57→20:29)
[2020-06-16] MEDS ORDERED: NON FORMULARY DRUG (Calcium/Magnesium/Zinc [Calcium-Magnesium-Zinc Tablet] 1 EACH Tablet) PO SCH (09:00)
[2020-06-16 10:06] LABS: African American GFR (CKD) 106.9 (60.0-200.0); Anion Gap 4.8 mmol/L (4.00-12.00); BUN/Creat Ratio 14.29 Ratio (12.00-20.00); Calcium 7.6 mg/dL (8.7-10.3); Carbon Dioxide 27.2 mmol/L (21.6-31.8); Non-African American GFR(CKD) 92.2 (60.0-200.0)
--- NOTE | 2020-06-16 10:43 | P.PN ---
Subjective Progress Note Date: 06/16/20 Principal diagnosis: Status post L3-L4 decompression with fusion, minimally invasive Patient was evaluated at bedside today, Dr. Monsalve was available to evaluate patient. She is resting in her hospital bed eating breakfast. She has not been up with therapy at this point. She states that her pain is controlled with current medication. She denies any headaches, lightheadedness, chest pain, shortness of breath, nausea or vomiting. She denies any perineal or genital num bness. She does note a little bit of pain on the right leg, this was present prior to admission. Objective - Vital Signs Vital signs: Vital Signs Temp 99.1 F 06/16/20 05:10 Pulse 53 L 06/16/20 05:10 Resp 17 06/16/20 05:10 BP 89/58 06/16/20 05:10 Pulse Ox 96 06/16/20 05:10 Intake & Output 06/15/20 06/16/20 06/16/20 18:59 06:59 18:59 Intake Total 2825 Output Total 350 Balance 2475 Intake: IV 2600 Intake, IV Titration 225 Amount 0.9% NaCl with KCl 20 Meq 225 /l 1,000 ml @ 75 mls/hr IV .[id number] NITHIN Rx#: [id number] Output: Urine 150 Estimated Blood Loss 200 Other: Voiding Method Bedside Commode Bedside Commode Diaper Diaper # Voids 1 - Exam Gen: AOx3, NAD VSS stable at this time Integument: Postoperative bandages in position and condition, no obvious drainage present. Palpation: Minimal tenderness with palpation of the midline and paraspinal regions of the lumbar spine ROM: Range of motion is intact of all major muscle groups of the bilateral upper and lower extremities Sensory Exam: Senory exam to light touch is intact C5-T1 Senosry exam to light touch is intact L2-S1 Motor: 5/5 strength is appreciated in all major muscle groups in the bilateral upper and lower extremities Reflexes: 2/4 in all UE and LE - Labs CBC & Chem 7: 06/16/20 05:50 06/16/20 05:50 Labs: Abnormal Lab Results - Last 24 Hours (Table) 06/16/20 06/16/20 Range/Units 05:50 05:50 RBC 3.68 L (3.80-5.40) m/uL Hgb 9.8 L D (11.4-16.0) gm/dL Hct 31.7 L (34.0-46.0) % MCHC 30.7 L (31.0-37.0) g/dL RDW 15.7 H (11.5-15.5) % Calcium 7.6 L (8.7-10.3) mg/dL Assessment and Plan Assessment: Postoperative day #1 status post L3-L4 decompression with fusion, minimally invasive approach Plan: Pain control, continue with current medication DVT prophylaxis, heparin can be started today, we'll utilize during hospital stay Discussed out of bed with all meals, use of incentive spirometer PT/OT evaluation Dressing change tomorrow Medical recommendations Patient may require subacute rehab depending on how her activity level advances during hospital stay Time with Patient: Less than 30
[2020-06-16] MEDS: ALBUTEROL NEBULIZED 2.5 MG/3 ML INHALATION PRN ×2 (12:01→20:53)
[2020-06-16 12:03] VITALS: RESP 16
[2020-06-16] MEDS: METOPROLOL SUCCINATE (ER) 50 MG TAB.ER.24H PO SCH (12:40)
[2020-06-16] MEDS: HYDROcodone/APAP 10-325MG 1 EACH TAB PO PRN (12:40)
[2020-06-16] MEDS: CYCLOBENZAPRINE 10 MG TAB PO PRN (16:51)
[2020-06-16] MEDS: PANTOPRAZOLE 40 MG TABLET PO SCH (20:29)
[2020-06-16] MEDS: FERROUS SULFATE 325 MG TAB PO SCH (20:29)
[2020-06-16] MEDS: ATORVASTATIN 20 MG TAB PO SCH (20:29)
[2020-06-16] MEDS: ZOLPIDEM 5 MG TAB PO SCH (20:35)
[2020-06-17] MEDS: HYDROcodone/APAP 5-325MG 1 EACH TAB PO PRN (01:58)
[2020-06-17] MEDS: ACETAMINOPHEN TAB 325 MG TAB PO SCH ×3 (04:45→16:46)
[2020-06-17] MEDS: LACTATED RINGERS 1,000 ML IV SCH (04:48)
[2020-06-17] MEDS: CYCLOBENZAPRINE 10 MG TAB PO PRN (08:19)
[2020-06-17] MEDS: DULoxetine HCL 60 MG CAPSULE.DR PO SCH (08:19)
[2020-06-17] MEDS: CHOLECALCIFEROL 25 MCG (1000 IU) TABLET PO SCH (08:19)
[2020-06-17] MEDS: FLECAINIDE 50 MG TAB PO SCH (08:19)
[2020-06-17] MEDS: RIVAROXABAN 20 MG TAB PO SCH (08:20)
[2020-06-17] MEDS: LORATADINE 10 MG TAB PO SCH (08:20)
[2020-06-17] MEDS: GABAPENTIN 300 MG CAP PO SCH (08:20)
[2020-06-17] MEDS: 0.9% NACL WITH KCL 20 MEQ/L 1,000 ML IV SCH (08:21)
[2020-06-17] MEDS: ALBUTEROL NEBULIZED 2.5 MG/3 ML INHALATION PRN (09:14)
--- NOTE | 2020-06-17 10:14 | P.PN ---
Subjective Progress Note Date: 06/17/20 Principal diagnosis: Status post L3-L4 decompression with fusion, minimally invasive Patient was evaluated at bedside today, Dr. Monsalve was available to evaluate patient. She is resting in her hospital bed eating breakfast. Patient did work with physical therapy, she is requiring quite a bit of assistance in getting out of bed. She states that her pain is controlled with current medication. She denies any headaches, lightheadedness, chest pain, shortness of breath, nausea or vomiting. She denies any perineal or genital numbness. She does note a little bit of pain on the right leg, this was present prior to admission. Objective - Vital Signs Vital signs: Vital Signs Temp 98.6 F 06/17/20 07:28 Pulse 71 06/17/20 09:25 Resp 16 06/17/20 07:28 BP 102/61 06/17/20 07:28 Pulse Ox 97 06/17/20 09:16 Intake & Output 06/16/20 06/17/20 06/17/20 18:59 06:59 18:59 Intake Total 1500 Output Total 4 Balance 1500 -4 Intake: Intake, IV Titration 1500 Amount 0.9% NaCl with KCl 20 Meq 1500 /l 1,000 ml @ 75 mls/hr IV .[id number] NITHIN Rx#: [id number] Output: Urine 4 Other: Voiding Method Bedside Commode Bedside Commode Diaper Diaper # Voids 1 - Exam Gen: AOx3, NAD VSS stable at this time Integument: Bandage removed, baldo are in all good position and condition, no drainage or erythema noted Palpation: Minimal tenderness with palpation of the midline and paraspinal regions of the lumbar spine ROM: Range of motion is intact of all major muscle groups of the bilateral upper and lower extremities Sensory Exam: Senory exam to light touch is intact C5-T1 Senosry exam to light touch is intact L2-S1 Motor: 5/5 strength is appreciated in all major muscle groups in the bilateral upper and lower extremities Reflexes: 2/4 in all UE and LE - Labs CBC & Chem 7: 06/16/20 05:50 06/16/20 05:50 Assessment and Plan Assessment: Postoperative day #2 status post L3-L4 decompression with fusion, minimally invasive approach Plan: Pain control, plan for discharge on [place] 10mg/325mg Dressing change was done at bedside today Medical recommendations Discharge planning: plan for discharge to rehab today Time with Patient: Less than 30
--- NOTE | 2020-06-17 10:23 | P.DS ---
Providers Date of admission: 06/16/20 10:41 Expected date of discharge: 06/17/20 Attending physician: Milton Monsalve DO Primary care physician: Pillo Patterson Hospital Course: Date of admission: 06/15/2020 Date of discharge: 06/17/2020 Admission diagnosis: 1. L3-4 grade I-II spondylolisthesis, unstable 2. L3 a/c VCF 3. Lumbar spinal stenosis moderate to severe L2-4 Discharge diagnosis: Status post L3-L4 minimally invasive decompression and fusion Attending physician: Dr. Monsalve Surgical procedures: L3-L4 minimally invasive decompression fusion Brief history: Patient is a 65-year-old female with a history of L3-L4 grade 1-2 spondylolisthesis, L3 a/c VCF, with lumbar spinal stenosis moderate to severe noted at L2 L4. At this point patient has failed conservative treatment measures and has opted to proceed with a elective minimally invasive L3-L4 decompression and fusion Hospital course: Details of patient's surgery can be found in operative report. Patient tolerated the procedure well and was subsequently transported to orthopedic floor. Patient's orthopeidc and medical care was provided daily. Patient had daily laboratory tests performed for evaluation of overall blood counts. Patient had daily physical therapy to include strengthening range of motion as well as education with walker ambulation. Patient was treated with Xarelto for their postoperative DVT prophylaxis during their inpatient stay. Mercedes white was noted to have a relatively uneventful postoperative course. Patient reported satisfactory pain control with oral pain medications by postoperative day 0. Patient showed satisfactory progress with physical therapy. Patient moved steadily through the program and had no difficulty meeting the goals by postoperative day 2. Given patient's otherwise satisfactory course and having met physical therapy goals, plan is to discharge patient rehab on postoperative day 2. Discharge condition/disposition: Patient will be discharged to rehab in stable condition. Discharge medications: Instructions are given on resumption of patient's normal daily medications per primary care recommendation, in addition patient will be prescribed [place] 10 mg/325 mg, Senna-S Discharge instructions: 1. Okay to remove current dressing in 3 days, redress his incisions with basic gauze while lying flat. Okay to shower directly over incision after removal of bandage. 2. Weight-bear as tolerated with walker / cane until follow-up. 3. Ice and elevate when necessary. Do not exceed 20 minutes per hour with ice pack. 4. Utilize compression sleeve until seen at first follow up appointment. 5. Visiting nursing care. 6. Home physical therapy. 7. Pain meds and anticoagulants per prescription. 8. Pain medication has potential to cause constipation. Increase oral fluid and fiber intake. Contact primary care provider if you have not had a bowel movement within 48 hours after discharge 9. No anti-inflammatory medication until discussed at first post operative visit, this including Motrin, Aleve, Mobic, Diclofenac. 10. Follow up in office at [address] Monsalve 11. Follow up with your primary care doctor 7-10 days after discharge. 12. Contact [facility] with any questions, . Procedures: L3-L4 minimally invasive decompression and fusion Patient Condition at Discharge: Good Plan - Discharge Summary Discharge Rx Participant: Yes New Discharge Prescriptions: New Gabapentin 300 mg PO TID 3 Days #9 cap Cyclobenzaprine [Flexeril] 10 mg PO BID PRN #30 tab PRN Reason: Muscle Spasm HYDROcodone/APAP 10-325MG [[place]im[place] 10-325] 1 tab PO Q6HR PRN #28 tab PRN Reason: Pain No Action Albuterol Sulfate [Proair Hfa] 2 puff INHALATION Q6HR PRN PRN Reason: Shortness Of Breath Esomeprazole Magnesium [NexIUM] 40 mg PO HS DULoxetine HCL [Cymbalta] 60 mg PO BID Gabapentin [Neurontin] 300 mg PO TID Eszopiclone [Lunesta] 3 mg PO HS rOPINIRole HCL [Requip] 1 mg PO BID Cetirizine HCl [Zyrtec] 10 mg PO DAILY Atorvastatin [Lipitor] 20 mg PO HS Rivaroxaban [Xarelto] 20 mg PO DAILY Ferrous Sulfate [Iron (65 MG Elemental)] 325 mg PO HS Flecainide Acetate 100 mg PO BID Cbd Oil 50 mg PO BID Metoprolol Succinate (ER) [Toprol Xl] 50 mg PO 1200 Cholecalciferol (Vitamin D3) [Vitamin D3 (4,000 Iu)] 4,000 unit PO DAILY Calcium/Magnesium/Zinc [Ghsxrqd-Xkejkjwku-Wivd Tablet] 1 each PO DAILY Furosemide [Lasix] 20 mg PO DAILY PRN PRN Reason: Edema Cyclobenzaprine [Flexeril] 10 mg PO BID Discharge Medication List Albuterol Sulfate [Proair Hfa] 2 puff INHALATION Q6HR PRN 07/24/14 [History] DULoxetine HCL [Cymbalta] 60 mg PO BID 07/24/14 [History] Esomeprazole Magnesium [NexIUM] 40 mg PO HS 07/24/14 [History] Eszopiclone [Lunesta] 3 mg PO HS 03/14/18 [History] Gabapentin [Neurontin] 300 mg PO TID 03/14/18 [History] Atorvastatin [Lipitor] 20 mg PO HS 07/22/18 [History] Cetirizine HCl [Zyrtec] 10 mg PO DAILY 07/22/18 [History] rOPINIRole HCL [Requip] 1 mg PO BID 07/22/18 [History] Ferrous Sulfate [Iron (65 MG Elemental)] 325 mg PO HS 08/19/18 [History] Rivaroxaban [Xarelto] 20 mg PO DAILY 08/19/18 [History] Flecainide Acetate 100 mg PO BID 09/14/18 [History] Cbd Oil 50 mg PO BID 10/06/19 [History] Calcium/Magnesium/Zinc [Ghqaycn-Pgltqvure-Fvbu Tablet] 1 each PO DAILY 06/09/20 [History] Cholecalciferol (Vitamin D3) [Vitamin D3 (4,000 Iu)] 4,000 unit PO DAILY 06/09/20 [History] Cyclobenzaprine [Flexeril] 10 mg PO BID 06/09/20 [History] Furosemide [Lasix] 20 mg PO DAILY PRN 06/09/20 [History] Metoprolol Succinate (ER) [Toprol Xl] 50 mg PO 1200 06/09/20 [History] Cyclobenzaprine [Flexeril] 10 mg PO BID PRN #30 tab 06/17/20 [Rx] Gabapentin 300 mg PO TID 3 Days #9 cap 06/17/20 [Rx] HYDROcodone/APAP 10-325MG [[place] 10-325] 1 tab PO Q6HR PRN #28 tab 06/17/20 [Rx] Follow up Appointment(s)/Referral(s): Milton Monsalve DO [Doctor of Osteopathic Medicine] - 2 Weeks Activity/Diet/Wound Care/Special Instructions: Spine Discharge and Recovery Instructions Date of Surgery: 01/06/2020 Diagnosis: 1. L3-4 grade I-II spondylolisthesis, unstable 2. L3 a/c VCF 3. Lumbar spinal stenosis moderate to severe L2-4 Procedure: Minimally invasive L3-L4 decompression and fusion Medications: See medication list All medication refills should be obtained through your primary care doctor or your clinic spine surgeon. Please discuss prescription refills at your follow up appointment. Do not call the hospital for medication refills. Dressing: Leave your dressing in place for a total of 5 days post operatively. Then you may remove your dressing and leave open to air. Keep the area clean and if not able to keep area clean, then cover with sterile gauze and tape. Showering: You may shower 3 days after your procedure allowing soap and water to run over incision. Do not scrub. Do not soak. Blot dry. Follow up: Please confirm a follow up appointment with your surgeon 3 weeks post operatively. Please make an appointment to follow up with your PCP in 1-2 weeks after surgery for evaluation 3 phase, 3-week plan POST OP WEEKS 1-3 1. Lifting/carrying/pushing/pulling limited to less than 5 pounds. 2. Do not sit for longer than 15 minutes at one time. Get up and walk around. Prolonged sitting is NOT advised. If you lay down, see if you can tolerate laying down on you front (belly side) 3. Walk for periods of 15 minutes = 1 mile but no longer; do it multiple times times each day. 4. Ice your low back after activity. POST OP WEEKS 3-6 1. Lifting limited to less than 20 pounds. 2. Do not sit for longer than 30 minutes at a time. Frequently change positions. Use a sit-to stand workstation or take frequent breaks from sitting if you have returned to work. 3. Walk for 30 minutes each day. If possible, do these three or more times a day POST OP WEEKS 6+ At your 6-week appointment we will give you a physical therapy referral to focus on a core stabilization and strengthening program. You should also work on leg & buttock strengthening, hamstring & quadriceps stretching, and continue a low impact aerobic activity program such as swimming, walking, or riding a stationary bicycle. During the initial 6 weeks after your surgery, you are at the highest risk of re-injuring your spine. You should generally avoid BLTs (bending, lifting and twisting combination motions) and follow the above guidelines to reduce the chance of reinjury. You can anticipate post op appointments in our office at approximately 3 weeks and 6 weeks after your surgery. INCISION CARE: If your incision is not draining you do NOT need to cover it with a dressing. Keep your incision clean, dry and intact. In most cases, we apply skin glue, baldo or sutures to the incision at the time of surgery. This will be like a crust or have the appearance of a scab and will fall off in time on its own. The stitches or baldo need to be removed at 3 weeks post op appointment. You may begin to shower 3 days after surgery (this allows the glue to lin well). However, please avoid scrubbing the incision site or peeling off any of the skin glue. This will ensure optimal healing of your incision. Also, during this time avoid soaking the incision area in water - this includes swimming pools, hot tubs or baths. No ointments, lotions or oils on the incision until your surgeon allows. Leave baldo, sutures or glue in place. Neurological dysfunction that comes on suddenly can also be a sign of a stroke. Below some common symptoms of a stroke are listed: B - balance difficulty such as sudden onset walking or leaning to one side - NEW E - eye problem such as sudden double vision or trouble seeing on one side - NEW F - Facial weakness or numbness on one side - NEW A - Arm or leg weakness or numbness on one side - NEW S - Slurred speech or difficulty with word finding - NEW T - Time is BRAIN! Call 911 as soon as you recognize these symptoms Diet: Consume a regular diet rich in vegetables and lean protein such as chicken or fish. You should consume in a ratio of approximately 20% fats|40% carbohydrates|40%protein. Vegetables, sweet potatoes, brown rice or quinoa are examples of good carbohydrates. Chips, white bread, cookies and sweets/sugar are examples of bad carbohydrates. Limit your bad carbs, go wild with good carbs. "Life's Simple 7" Guidelines as per [place] [employer] These will help you reclaim your life after surgery and cable testers helper in your recovery, keeping in mind your restrictions. (1) Get Active. Physical activity can help people lose weight, control high blood pressure and cholesterol, feel emotionally better, and sleep better. (2) Control Cholesterol. Avoid a diet high in saturated fat, trans fat, & cholesterol. Limit whole milk & cream, ice cream, butter, egg yolks, processed meats (like sausage and hot dogs), and fatty meats. Choose healthy foods that are low in saturated fat, trans fat and cholesterol which include: Fruits and vegetables, fiber rich grain products (like whole grain pasta and brown rice), lean meat such as chicken, fish, nuts, seeds, and legumes. (3) Eat Better. Eat small portions. Shop at the grocery with a list and do not stray from it. Tips for a healthy diet include: Limit sodium intake to less than 1500mg daily, avoid prepackaged, processed, and fast foods, choose a diet rich in fruits, vegetables, and whole grain, high fiber foods, and limit saturated & cholesterol in your diet. (4) Manage Blood Pressure. If you have high blood pressure, you should have a cuff at home so that you can check your blood pressure regularly. Be sure you have a good cuff. An arm one is generally better than a wrist one. Bring the cuff to a doctor's appointment to validate that the measurements that your cuff are taking are accurate. Take your blood pressure twice daily when you are sitting down and relaxing. Record the numbers in a log and bring this log with you to your doctors' appointments. (5) Lose Weight if your BMI is above 25. A healthy BMI is between 19-25. To calculate Your BMI, you may use a Standard BMI Calculator on the NIH BMI website: <www.nhlbi.nih.gov/guidelines/obesity/BMI/bmicalc.htm>. Weigh oneself daily. If you are overweight, set a goal to lose weight. A pound a week loss if needed is a good target. (6) Reduce Blood Sugar. Limit foods and liquids with "added sugars." (Added sugars include sucrose, fructose, glucose, maltose, dextrose, high fructose corn syrup, corn syrup, concentrated fruit juice and honey). (7) Stop Smoking. If you smoke, quitting smoking is one of the best things that you can do for your health. Smoking increases your risk of heart attack, stroke, and peripheral vascular disease, which is a build-up of plaque in your arteries. Please discard all the cigarettes and lighters in your house. Have a plan for what you will do when you have the urge to smoke. Direct and second- hand smoke shortens your life as well as the lives of your family, friends and others around you. For your health and the health of those around you, please consider quitting! Proper Bending Body Mechanics: Maintain a wide stance with one foot slightly in front of the other. Keep your back straight. Bend utilizing the strength in your hips and knees. Do not bend at the waist. Maintain the lifted object at your waist-level close to your body. Avoid lifting weight that causes immediately pain or pain anywhere in the body afterwards. Smoking/Nicotine If there was ever one thing that you could do to increase your overall health, decrease your risk of cardiovascular problems by about 39% the second you make the choice, it is to STOP SMOKING. Your body's most instant gratification is the second you stop smoking. We have all heard the studies, read the articles but it is true, smoking is extremely bad for your overall health, and moreover it is detrimental to your bone health. Nicotine, IN ANY FORM, kills bone cells, prevents your body from healing fractures, and significantly prolongs healing after surgery. In spine surgery specifically, it increases your risk of not healing your bones to create a fu adriana and increases your risk of having a revision surgery due to this up to 60%. I know it is hard. I know it feels impossible. But there are ways. Take control of your life. We are here to help you through it. And when you are ready, ask us and we can direct you to help if you desire. Use the START Plan to Quit Smoking (please visit the Help[employer].org website listed below for more information): S = Set a quit date. Choose a date within the next 2 weeks, so you have enough time to prepare without losing your motivation to quit. If you mainly smoke at work, quit on the weekend, so you have a few days to adjust to the change. T = Tell family, friends, and co-workers that you plan to quit. Let your friends and family in on your plan to quit smoking and tell them you need their support and encouragement to stop. Look for a quit steven who wants to stop smoking as well. You can help each other get through the rough times. A = Anticipate and plan for the challenges you'll face while quitting. Most people who begin smoking again do so within the first 3 months. You can help yourself make it through by preparing ahead for common challenges, such as nicotine withdrawal and cigarette cravings. R = Remove cigarettes and other tobacco products from your home, car, and work. Throw away all your cigarettes (no emergency pack!), lighters, ashtrays, and matches. Wash your clothes and freshen up anything that smells like smoke. Shampoo your car, clean your drapes and carpet, and steam your furniture. T = Talk to your doctor about getting help to quit. Your doctor can prescribe medication to help with withdrawal and suggest other alternatives. If you can't see a doctor, you can get many products over the counter at your local pharmacy or grocery store, including the nicotine patch, nicotine lozenges, and nicotine gum. Resources for Quitting Smoking: <https://www.[place].gov/documents/[facility]/Quit_Tobacco_Resources_for_patients_3 13480_7.pdf> Supplementation: Take recommended dosages of Vitamin D and Calcium to help fortify your bones and help them to heal. See your health maintenance packet for dosages and recommen ded levels. DVT/VTE prophylaxis: You will be given compression stockings from the hospital. Wear these daily for the first two weeks after surgery. You may take them off at night. You may be prescribed a medication to help thin your blood. Take this as directed. If you are not prescribed this medication, early and frequent ambulation has been shown to be the best prophylaxis to deep vein thrombosis and sequelae related to this event. Discharge Disposition: TRANSFER TO SNF/ECF
[2020-06-17] MEDS: METOPROLOL SUCCINATE (ER) 50 MG TAB.ER.24H PO SCH (12:49)
[2020-06-17 13:26] VITALS: BP 110/71; PULSE 89; TEMP 98.1
--- NOTE | 2020-06-21 14:19 | P.OP ---
Date of Procedure: 06/15/20 Preoperative Diagnosis: 1. L3 L4 spondylolisthesis grade II unstable 2. L3-4 spondylosis 3. L3 a/c VCF 4. RLE radiculopathy 5. mechanical back pain Postoperative Diagnosis: 1. L3 L4 spondylolisthesis grade II unstable 2. L3-4 spondylosis 3. L3 a/c VCF 4. RLE radiculopathy 5. mechanical back pain Procedure(s) Performed: 1. L3-4 bilateral laminotomy, foraminotomy and facetectomy 2. L3-4 transforaminal lumbar interbody fusion 3. use of intraoperative microscope 4. use of intraoperative NeuroMonitoring Implants: Globus Sable Cages 22 x 7-13 15 degree lordotic times 2 x4 Arthur MIS screws Carli cement x2 55 mm 6.0 rods Anesthesia: DILIA Surgeon: Milton Monsalve Plant Biology Professor #1: Parker Canales (Was present for the entire case and necessary due to the complexity of the case) Estimated Blood Loss (ml): 200 IV fluids (ml): 1,500 Urine output (ml): 500 Pathology: none sent Condition: stable Disposition: PACU Indications for Procedure: 65 yo female who presented to the office after continued back pain for the past year. She has tried several different methods of treatment including PT, OTC medications, Rx medications, Bracing, home exercise and chiropractics but she continues to have severe back pain and RLE pain that travels below her knee. She does not have any perineal numbness or tingling. She states no bowel or bladder issues. She was seen and evaluated in the preoperative area. Today she is c/o increased RLE pain compared to LLE but that both of her legs are painful. She states back pain as well. She has been held NPO. She has not taking any blood thinning medications for 5 days. She confirms the procedure to be performed. She is ready and willing to undergo surgery. Operative Findings: Extreme facet hypertrophy L3-4 with a/c VCF L3 and Grade I-II spondylolisthesis of L3-4 with foraminal stenosis and mild central stenosis. Description of Procedure: The patient was seen and examined in the preoperative area. All preoperative protocols were followed. Informed consent was obtained risks and benefits of the procedure were discussed at length. Risks including bleeding infection damage to the surrounding tissue and risk of reoperation were discussed with the patient. Risk of anesthesia up to and including was a discussed with the patient. These are outlined in the risk review. They were willing to accept these risks and all of the risks of surgery. The patient was given a weight- based dose of antibiotics in the form of Ancef 3 g IVPB 1. The patient was seen and evaluated by the anesthesia team who deemed them fit for surgery. The site was marked, the patient was willing to proceed with the procedure. The patient was transferred to the operative suite by the Department of anesthesia. They were then drifted off to sleep by the department anesthesia GETA. The patient tolerated this well. [Augustine catheter was placed by nursing staff, atraumatically]. Once confirmation of lines and ventilation the patient was transferred to a [prone Bryan table very carefully]. All bony prominences including wrists, elbows, axilla, chest, hips, and thighs, and feet were padded very well. Special attention was paid to the genitalia and these were padded accordingly. SCDs were placed on bilateral lower extremities and were connected. Arms were well padded and placed [on arm boards up and out in the 90/90 position]. Once in position, again we confirmed good ventilation capabilities and that lines were running appropriately. The patient's lumbar spine was then exposed. 1010s were placed outlining the incision site. Standard alcohol was used to clean the incision site and allowed to dry. C-arm was used to biomark the patient and confirm level for incision which was marked with a skin marker. Operative briefing was performed with all teams and everyone in agreement to proceed. The patient was then prepped and draped in a normal sterile fashion. Timeout was then performed and all parties were in agreement with the procedure to be performed. The area was then anesthetized with quarter percent without and 1% with bupi vacaine and lidocaine respectively. We then localized under AP and lateral fluoroscopy to find a perfect view of the L3 pedicles once he found this view we placed Jamshidi's through the skin. We then advanced the Jamshidi's starting on the left-hand side in the 10 o'clock position and the right hand side and the 2 o'clock position to the midpoint of the pedicle we then switched to a lateral and confirmed that this was near the back of the vertebral body once it was in good position we entered the vertebral body with the Jamshidi's. The inner trochars removed and wires placed through the Jamshidi's. She was then removed and the wire remained in position bilaterally we then snapped the wires to the drapes securely. We repeated this process obtaining perfect AP and lateral views of the L4 pedicles. Jamshidi's were placed in the skin and were then advanced until the midpoint of pedicles recently flipped to a lateral view which confirmed that we are within the pedicles and at the back of the body. Then advanced these into the body and placed wires under lateral fluoroscopic view. We then removed the Jamshidi's and snapped the wires to the drape. Take AP and lateral fluoroscopy which confirmed good position of the wires. Attention was then drawn to the decompression on the left-hand side and we used AP and lateral fluoroscopy to localize a position for tube placement once in a good position the wire was impacted into the facet joint on the left-hand side of L3 and L4 dilators were then placed over this and a final tube which was 80 mm x 20 mm was placed and secured to the bed with a arm. Once in good position we then moved the microscope into position so he can see. The capsule was then removed from the IEP of L3 which was visualized there were large osteophytes in this area which were burred off and once these were burred off we could visualize the joint space between the IP and SAP of L3 and L4 respectively. We then using a high-speed bur were able to bur off the L3 IEP followed by the SAP eval for which allowed for complete pedicle to pedicle decompression on the left-hand side once we did this bipolar cautery was used to ensure hemostasis. We then pe rformed a limited laminotomy laminectomy on the left-hand side. Tube in this area as well for decompression of the nerves centrally. We then turned our attention to the disc space and the exiting nerve root which was protected entirely we were able to access the disc space very easily and so a 15 blade on a long handle was used to perform a annulotomy. Sequential dada were then placed under AP and lateral fluoroscopy and the disc space was shaved to a 10 height. We then selected a corresponding Sabal cage which was then impacted into place and backfilled with bio 4. We did scrape the endplates prior to this in place anterior to it to DBM bullets. The cage was impacted into place under AP lateral fluoroscopy and then was expanded under lateral fluoroscopy which ensured good placement and good expansion at this level. We then placed FloSeal around the area and to ensure hemostasis. The cage was tested and was stable. The tubes were then withdrawn electrocautery bipolar was used for hemostasis. We then turned our attention to the right hand side and repeated this process first with localization under AP and lateral fluoroscopy followed by a dilator placement and tube placement. We were able to DrPhyllis menjivar once again over the L3- L4 IEP and SAP respectively. There is large osteophytic overgrowth which using high-speed bur we are able to remove which allowed us to visualize the joint of L3 and L4. We are then able to drill off the IEP of L3 followed by the SAP of L4 ensuring a complete pedicle to pedicle decompression on this side. A limited laminotomy was also performed midline to allow for midline decompression. We then use electrocautery bipolar to ensure meticulous hemostasis. The exiting nerve root was visualized and protected and we accessed the disc space using a 15 blade. Sequential shaving was then taken up to a 10 shaver endplates were scraped DBM bullets were placed anterior to the cage and a Sabal cage was selected and impacted into place under lateral fluoroscopy. AP fluoroscopy was also taken to ensure good placement of the cage we then expanded the cage and the lateral fluoroscopy and backfilled the cage with bio 4. Once the cages were in place they were tested and were stable. AP and lateral fluoroscopy confirmed good position of the cages. The tube on the right-hand side was then removed and meticulous hemostasis performed around the area. We then turned our attention to screw placement under lateral fluoroscopy the screws were placed over the previously placed wires. Perfect scalpel was placed over the wire to ensure good path for the screw bone graft was placed around the tulip of the screw and the L4 screws were placed under lateral fluoroscopy. No advancement of the wire was seen in the wire was pulled once the screw reach the back of the vertebral body. AP and lateral fluoroscopy confirmed good placement of the screws. Turned our attention to the L4 screws bilaterally and repeated this process with placement of screws over the previously placed wires. Once the screws were in place they were tested and all tested above 20 mA. And selected a cristiane and were able to place this cristiane subfascially through the previously made transverse incisions. The cristiane was confirmed to be within both tulip heads. We then placed the L4 screw set screw first and tightened this down and final tightened it. We then sequentially reduced placing the set screws into L3 bilaterally and sequentially reducing to allow for reduction of the spondylolisthesis. Once these were tightened down the spondylolisthesis was reduced the cages were in good position and the screws remained stable. Within final tightened the L3 screws as well. The tabs were then broken off of the MIS screws and there was no tabs left behind. AP and lateral fluoroscopy confirmed good placement of screws as well as adequate cristiane fixation. We then copiously irrigated the wounds with normal sterile saline. We placed vancomycin deep within the wounds. Fascia was closed with 0 Vicryl stitch followed by 20 in the subcu every region and baldo in the skin. 1 g of Cellerate was placed within the subcutaneous layer before closure. The wound was then cleaned and sterilely dressed with Cellerate gel followed by Telfa 4 x 4's and Tegaderms. The patient was transferred back to her hospital bed atraumatically. Patient was then awakened and extubated by the department of anesthesia having tolerated the procedure very well with no complications. She was transferred to the postoperative care unit in stable condition.
== END 2020-06-17 16:45 ==
LOC: OR 05:50 → EDSTATUS 07:30 → 5NMEDONC 14:14 → OR 06-16 10:41
PROVIDERS: ADMIT Orthopaedic Surgery; ATTEND Orthopaedic Surgery
DX: M47.816 Spondylosis without myelopathy or radiculopathy, lumbar region (principal); M54.10 Radiculopathy, site unspecified; M43.16 Spondylolisthesis, lumbar region; M48.061 Spinal stenosis, lumbar region without neurogenic claudication; I10 Essential (primary) hypertension; I48.91 Unspecified atrial fibrillation; J45.909 Unspecified asthma, uncomplicated; K21.9 Gastro-esophageal reflux disease without esophagitis; E78.5 Hyperlipidemia, unspecified; G25.81 Restless legs syndrome; I25.2 Old myocardial infarction; Z20.822 Contact with and (suspected) exposure to COVID-19; Z79.01 Long term (current) use of anticoagulants; Z79.899 Other long term (current) drug therapy; Z90.89 Acquired absence of other organs; Z90.49 Acquired absence of other specified parts of digestive tract; Z98.84 Bariatric surgery status; Z90.710 Acquired absence of both cervix and uterus; Z82.49 Family history of ischemic heart disease and other diseases of the circulatory system; Z82.5 Family history of asthma and other chronic lower respiratory diseases; Z83.3 Family history of diabetes mellitus
CPT/HCPCS: 22558; 20930; 22853; 94640 ×3; 94760 ×2; 97530; 97162; 97535; 97166; 86900; 86901; 80048; 85025; 86850; 87635; 72100; 72131; 36415; G0378 ×2; C1713 ×2; C1762 ×3; J2250; J0690 ×2; J2405; J2001; J3010; J0330; J2704; J1170

== ENCOUNTER 2020-06-17 17:05 | Emergency (ER) | payer MEDICARE, OTHER ==
[2020-06-17 17:15] VITALS: BP 124/67; RESP 18; TEMP 98.8
--- NOTE | 2020-06-17 17:39 | ED ---
Fall HPI - General Chief Complaint: Fall Stated Complaint: Fall/head injury/blood thinners/post back surgry Time Seen by Provider: 06/17/20 17:17 Source: patient Mode of arrival: wheelchair - History of Present Illness Initial Comments: 65-year-old female presents to the emergency department with a chief complaint of head injury. Patient reports this occurred less than one hour prior to arrival. Patient reports she was in a wheelchair ramp to be anterior in a trial that in order to go to [facility] for rehab. Patient reports the chair flipped back and she suffered a head injury and occipital region but denies any loss of consciousness. Patient is on Xeralto. C-collar in triage. Patient denies any weakness or paresthesias in the extremities. She denies any pain at this time. She denies any headaches chest pain or shortness of breath or visual changes at this time. - Related Data Home Medications Medication Instructions Recorded Confirmed Albuterol Sulfate [Proair Hfa] 2 puff INHALATION Q6HR PRN 07/24/14 06/09/20 DULoxetine HCL [Cymbalta] 60 mg PO BID 07/24/14 06/09/20 Esomeprazole Magnesium [NexIUM] 40 mg PO HS 07/24/14 06/09/20 Eszopiclone [Lunesta] 3 mg PO HS 03/14/18 06/09/20 Gabapentin [Neurontin] 300 mg PO TID 03/14/18 06/09/20 Atorvastatin [Lipitor] 20 mg PO HS 07/22/18 06/09/20 Cetirizine HCl [Zyrtec] 10 mg PO DAILY 07/22/18 06/09/20 rOPINIRole HCL [Requip] 1 mg PO BID 07/22/18 06/09/20 Ferrous Sulfate [Iron (65 MG 325 mg PO HS 08/19/18 06/09/20 Elemental)] Rivaroxaban [Xarelto] 20 mg PO DAILY 08/19/18 06/09/20 Flecainide Acetate 100 mg PO BID 09/14/18 06/09/20 Cbd Oil 50 mg PO BID 10/06/19 06/09/20 Calcium/Magnesium/Zinc 1 each PO DAILY 06/09/20 06/09/20 [Lnxzhwc-Ngujcjved-Uamg Tablet] Cholecalciferol (Vitamin D3) 4,000 unit PO DAILY 06/09/20 06/09/20 [Vitamin D3 (4,000 Iu)] Cyclobenzaprine [Flexeril] 10 mg PO BID 06/09/20 06/09/20 Furosemide [Lasix] 20 mg PO DAILY PRN 06/09/20 06/09/20 Metoprolol Succinate (ER) [Toprol 50 mg PO 1200 06/09/20 06/09/20 Xl] Previous Rx's Medication Instructions Recorded Cyclobenzaprine [Flexeril] 10 mg PO BID PRN #30 tab 06/17/20 Gabapentin 300 mg PO TID 3 Days #9 cap 06/17/20 HYDROcodone/APAP 10-325MG [[place] 1 tab PO Q6HR PRN #28 tab 06/17/20 10-325] Allergies Allergy/AdvReac Type Severity Reaction Status Date / Time codeine Allergy abd. Verified 06/17/20 17:12 swelling, increased pain etodolac [From Lodine] Allergy Unknown Verified 06/17/20 17:12 fluoxetine HCl [From Prozac] Allergy ELEVATED Verified 06/17/20 17:12 BLOOD PRESSURE propranolol HCl Allergy PALPITATION Verified 06/17/20 17:12 [From Inderal LA] S oxcarbazepine AdvReac Confusion Verified 06/17/20 17:12 [From Trileptal] rofecoxib [From Vioxx] AdvReac Hallucinati Verified 06/17/20 17:12 ons venlafaxine HCl AdvReac Hallucinati Verified 06/17/20 17:12 [From Effexor] ons Review of Systems ROS Statement: Those systems with pertinent positive or pertinent negative responses have been documented in the HPI. ROS Other: All systems not noted in ROS Statement are negative. 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 Hx Intussusception 06/2014, FOLLOWED BY SURGERY. Hx anemia. Last Myocardial Infarction Date:: 2005 History of Any Multi-Drug Resistant Organisms: None Reported Past Surgical History: Appendectomy, Bariatric Surgery, Bladder Surgery, Bowel Resection, Cholecystectomy, Heart Catheterization, Hysterectomy, Joint Replacement Additional Past Surgical History / Comment(s): BILATERAL OVARIAN SURGERY, ECT X7 [place] 1995, gastric bypass, left knee replacement. loop recorder placement 2018 Past Anesthesia/Blood Transfusion Reactions: Family History of Problems w/ Anesthesia Additional Past Anesthesia/Blood Transfusion Reaction / Comment(s): Dad had problems waking up. Past Psychological History: Anxiety, Bipolar, Depression Smoking Status: Never smoker Past Alcohol Use History: Rare Past Drug Use History: None Reported - Past Family History Father Family Medical History: AFIB, CVA/TIA, Myocardial Infarction (MT) Mother Family Medical History: COPD Brother(s) Family Medical History: Diabetes Mellitus, Hypertension Son(s) Family Medical History: No Reported History Sister(s) Family Medical History: Cancer, CVA/TIA General Exam Limitations: no limitations General appearance: alert, in no apparent distress, obese Head exam: Present: normocephalic, normal inspection. Absent: atraumatic (Scalp hematoma noted in the occipital region), other (Negative Morin sign, raccoon eyes, hemotympanum) Eye exam: Present: normal appearance, PERRL, EOMI Pupils: Present: normal accommodation ENT exam: Present: normal exam, normal oropharynx, mucous membranes moist Neck exam: Present: normal inspection, full ROM. Absent: tenderness Respiratory exam: Present: normal lung sounds bilaterally. Absent: respiratory distress, wheezes, rales, rhonchi Cardiovascular Exam: Present: regular rate, normal rhythm, normal heart sounds. Absent: systolic murmur Extremities exam: Present: normal inspection, full ROM, normal capillary refill. Absent: tenderness, pedal edema, joint swelling Back exam: Present: normal inspection, full ROM. Absent: tenderness, CVA tenderness (R), CVA tenderness (L) Neurological exam: Present: alert, oriented X3 Psychiatric exam: Present: normal affect, normal mood Skin exam: Present: warm, dry, intact, normal color Course Vital Signs 06/17/20 17:12 Temperature 98.8 F Pulse Rate 95 Respiratory 18 Rate Blood Pressure 124/67 O2 Sat by Pulse 98 Oximetry Medical Decision Making - Medical Decision Making 65-year-old female presents to emergency department with a chief complaint of fall. On physical examination, she does have a hematoma in the occipital region. CT of the brain and C-spine is unremarkable. C-collar was removed. Patient is clear for discharge. Return parameters discussed with patient was in a standing agreeable. Case discussed with Dr. Shields Disposition Clinical Impression: Fall, Head injury, Scalp hematoma Disposition: HOME SELF-CARE Condition: Stable Instructions (If sedation given, give patient instructions): Fall Prevention (ED) Additional Instructions: Please return to the Emergency Department if symptoms worsen or any other concerns. Is patient prescribed a controlled substance at d/c from ED?: No Referrals: Pillo Patterson [Primary Care Provider] - 1-2 days Time of Disposition: 18:47
[2020-06-17 17:41] VITALS: PULSE 95
--- NOTE | 2020-06-17 18:36 | CT ---
EXAMINATION TYPE: CT brain hazel daley DATE OF EXAM: 06/17/2020 COMPARISON: None HISTORY: Patient fell backwards while in wheelchair. Posterior head injury, pain. CT DLP: 1529.4 mGycm Automated exposure control for dose reduction was used. TECHNIQUE: CT scan of the head and cervical spine are performed without contrast. FINDINGS: There is no acute intracranial hemorrhage, mass effect, or midline shift identified. The ventricles and sulci are within normal limits in size. The globes are intact and the visualized sin uses are clear. Cervical spine is visualized in its entirety from C1 through upper thoracic levels and demonstrates s atisfactory alignment without evidence of acute fracture or dislocation. Prevertebral soft tissue ap pears within normal limits. The C1-C2 articulation is unremarkable. IMPRESSION: 1. There is no acute fracture or dislocation evident in the cervical spine. 2. No acute intracranial hemorrhage, mass effect, or midline shift is seen.
== END 2020-06-17 20:07 | disposition home or self-care (01) ==
LOC: EC 17:05
DX: S00.03XA Contusion of scalp, initial encounter (principal); M19.90 Unspecified osteoarthritis, unspecified site; J45.909 Unspecified asthma, uncomplicated; I48.91 Unspecified atrial fibrillation; K21.9 Gastro-esophageal reflux disease without esophagitis; I10 Essential (primary) hypertension; I25.2 Old myocardial infarction; F41.9 Anxiety disorder, unspecified; F32.9 Major depressive disorder, single episode, unspecified; E78.5 Hyperlipidemia, unspecified; W19.XXXA Unspecified fall, initial encounter; Z90.49 Acquired absence of other specified parts of digestive tract; Z95.5 Presence of coronary angioplasty implant and graft; Z90.710 Acquired absence of both cervix and uterus; Z98.84 Bariatric surgery status
CPT/HCPCS: 70450; 72125; 99285

== ENCOUNTER → 2021-01-22 | Outpatient (CLI) | payer MEDICARE, OTHER ==
[2021-01-22 09:32] LABS: HCT 34.8 % (34.0-46.0); Hypochromasia Slight; MCH 25.2 pg (25.0-35.0); MCHC 31.6 g/dL (31.0-37.0); MCV 79.9 fL (80.0-100.0); Mean Platelet Volume 8.5; Platelet Count 240 k/uL (150-450); RBC 4.35 m/uL (3.80-5.40); RDW 15.5 % (11.5-15.5); WBC 7.1 k/uL (3.8-10.6)
[2021-01-22 09:43] LABS: Potassium 4.2 mmol/L (3.5-5.1)
== END | disposition home or self-care (01) ==
LOC: LABPAT 08:30
PROVIDERS: ATTEND Internal Medicine Clinical Cardiac Electrophysiology
DX: Z01.812 Encounter for preprocedural laboratory examination (principal); Z20.822 Contact with and (suspected) exposure to COVID-19; I48.0 Paroxysmal atrial fibrillation
CPT/HCPCS: 80051; 82565; 84520; 85027; 87635

== ENCOUNTER 2021-01-24 11:58 | Day surgery (SDC) | payer MEDICARE, OTHER ==
[2021-01-21 09:47] VITALS: BMI 34.9
[~2021-01-24 11:58] MED LIST changes: -ACETAMINOPHEN TAB 500 MG TAB PO PRN; -DEXAMETHASONE SOD PHOSPHATE 4 MG/ML 1 ML VIAL IV ONE; -GABAPENTIN 300 MG CAP PO PRN; +HYDROmorphone 0.5 MG/0.5 ML SYRINGE IVP PRN; -LIDOCAINE 1% (10MG/ML) FOR IV START INTRADERMA PRN; -MIDAZOLAM 2 MG/2 ML VIAL IV PRN; -ONDANSETRON 4 MG/2 ML VIAL IVP ONE; -ONDANSETRON 4 MG/2 ML VIAL IVP PRN; -TRANEXAMIC ACID 1,000 MG in SODIUM CHLORIDE 0.9% 100 ML IVPB PRN
[2021-01-24] MEDS ORDERED: SODIUM CHLORIDE 0.9% 1,000 ML IV ONE (12:49)
[2021-01-24 13:19] LABS: Basophils % (A) 0 %; Eosinophils # (A) 0.2 k/uL (0-0.7); Eosinophils % (A) 2 %; HCT 39.6 % (34.0-46.0); HGB 12.7 gm/dL (11.4-16.0); Hypochromasia Slight; Lymphocytes # (A) 2.5 k/uL (1.0-4.8); Lymphocytes % (A) 31 %; MCH 25.7 pg (25.0-35.0); MCV 80.1 fL (80.0-100.0); Mean Platelet Volume 8.7; Monocytes # (A) 0.5 k/uL (0-1.0); Monocytes % (A) 6 %; Neutrophils # (A) 4.7 k/uL (1.3-7.7); Neutrophils % (A) 58 %; Platelet Count 296 k/uL (150-450); RBC 4.94 m/uL (3.80-5.40); RDW 15.8 % (11.5-15.5)
[2021-01-24 13:44] LABS: African American GFR (CKD) >90 (>60 ml/min/1.73 sqM); Anion Gap 6 mmol/L; Blood Urea Nitrogen 17 mg/dL (7-17); Calcium 9.1 mg/dL (8.4-10.2); Carbon Dioxide 27 mmol/L (22-30); Chloride 106 mmol/L (98-107); Glucose 94 mg/dL (74-99); Non-African American GFR(CKD) 78 (>60 ml/min/1.73 sqM); Potassium 4.2 mmol/L (3.5-5.1); Sodium 139 mmol/L (137-145)
[2021-01-24] MEDS ORDERED: LIDOCAINE 1% INJ 10MG/ML (20 ML MDV) ONE ×2 (15:54→16:15)
[2021-01-24] MEDS ORDERED: MIDAZOLAM 2 MG/2 ML VIAL ONE (16:15)
[2021-01-24] MEDS ORDERED: HEPARIN SODIUM,PORCINE 10,000 UNIT/ML 1 ML VIAL ONE (16:15)
[2021-01-24] MEDS ORDERED: ISOPROTERENOL 250 MCG/1.25 ML SYR IV ONE (16:15)
[2021-01-24] MEDS ORDERED: PROPOFOL 10 MG/ML 20 ML VIAL IV ONE (16:15)
[2021-01-24] MEDS ORDERED: .fentaNYL (PF) 50 MCG/ML 2 ML AMP ONE (16:15)
[2021-01-24] MEDS ORDERED: SUCCINYLCHOLINE CHLORIDE 100 MG/5 ML SYR IV ONE (16:15)
[2021-01-24] MEDS ORDERED: HEPARIN SOD,PORK IN 0.45% NACL 25,000 UNIT in 0.45% NACL 1 250ML.BAG IV ONE ×2 (16:25)
[2021-01-24] MEDS ORDERED: LIDOCAINE 1% INJ 10MG/ML (20 ML MDV) SQ ONE (16:45)
[2021-01-24] MEDS ORDERED: IOPAMIDOL-370 100ML BTL INJ ONE ×2 (18:20)
[2021-01-24] MEDS ORDERED: ALPRAZolam 0.25 MG TAB PO PRN (18:44)
[2021-01-24] MEDS ORDERED: FUROSEMIDE 20 MG TAB PO PRN (18:44)
[2021-01-24] MEDS ORDERED: ALBUTEROL NEBULIZED 2.5 MG/3 ML INHALATION PRN (18:44)
[2021-01-24] MEDS ORDERED: ACETAMINOPHEN TAB 325 MG TAB PO PRN (18:45)
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
--- NOTE | 2021-01-24 18:58 | P.EPPROC ---
- EP Procedure Note Electrophysiology Procedure Note: PROCEDURE A. fib ablation/PVI, cryoablation DIAGNOSIS Atrial fibrillation, symptomatic, refractory to therapy Paroxysmal and symptomatic RESULT No left atrial appendage mass seen on intracardiac echo Successful A. fib ablation/pulmonary vein isolation of all veins using cryo- ablation Complete entrance block in all 4 veins confirmed No evidence for phrenic nerve injury Common left-sided veins Esophageal deflection YES , left-sided esophagus PROCEDURE DETAILS Patient was brought to the EP lab in a fasting state. Written informed consent was obtained prior to the procedure. Procedure performed under general anesthesia After initial muscle relaxant use, muscle relaxants were not given thereafter in order to assess phrenic nerve during procedure. Patient prepped and draped as per protocol Full cryo-set up with standard preparation of the cryoablation tools done. Femoral Venous access obtained on the right and left groins Venous and arterial Sheaths placed. Diagnostic catheters for the high right atrium, phrenic nerve stimulation and pacing, His bundle, RV and coronary sinus placed Intracardiac echo catheter placed. Long sheath placed in the right atrium Left and right transseptal catheterization performed under intracardiac echo guidance. Intravenous heparin with aCT above 300 Later, catheter positioning and balloon positioning in the left atrium, under intracardiac echo guidance Diagnostic EP study with Drug infusion Coronary sinus pacing and recording Sinus cycle length 998 ms, DC interval 125 ms, QRS 112 ms and QT 403 ms AH 80 ms and HV interval 48 ms Sinus node recovery times at 600, 540 ms were 1419, 1063 and 1220. Corresponding chronic sinus node recovery times were within normal limits AV node Wenckebach block 310 ms Transseptal catheterization performed RA pressure 10/4/7 LA pressure 19//19 Transseptal catheterization performed with standard sheath. The cryoablation sheath was then placed with an over the wire exchange without any acute complications. All 4 pulmonary veins were isolated in the following sequence: Left superior followed by left inferior followed by right superior followed by right inferior The cryo-ablation balloon was placed at the os of each vein 1.5 mL of IV dye was injected to confirm an occluded vein Goal during cryoablation was to achieve complete occlusion of the pulmonary vein, achieve -30 degrees C at 30 seconds and achieve -40 degrees C at 60 seconds and a time to effect of less than 60-90 seconds, . If not the balloon was repositioned to obtain this result After completion of Cryoblation with durations from 180-240 seconds, entrance block was confirmed with the Attain circular catheter in a roving fashion around the antrum of the pulmonary veins Phrenic nerve pacing was performed from the SVC, right innominate vein area and diaphragm voltage was monitored. Diaphragmatic contractions were also monitored manually for strength of contraction. Parameter goals for each cryo freeze Complete occlusion of the appropriate vein -30 degrees C by 30 seconds -40 degrees C by 60 seconds Minimum between minus 40-55 degrees C Thaw time greater than 10 seconds Balloon visualized by intracardiac echo The esophagus was intubated. Esophageal Temperature monitoring with a CIRCA catheter formed. Esophageal deflection for hypothermia of the esophagus below 30 degrees C Left superior pulmonary vein, common left-sided, separately isolated Complete isolation, entrance block Left inferior pulmonary vein, common left-sided, separately isolated Complete isolation, entrance block Additional 60 seconds cryoablation just outside the left superior on the roof Right superior pulmonary vein, during phrenic nerve pacing, superior and inferior branches Complete isolation, entrance block Right inferior pulmonary vein, during phrenic nerve pacing Complete isolation, entrance block At the end of the procedure the Achieve catheter was once again used to check for entrance block Phrenic nerve stimulation was performed to confirm diaphragmatic stimulation the end of the procedure Cine fluoroscopy was performed at the very end of the procedure to confirm movement of both diaphragms with inspiration and expiration At the end of the procedure the patient was extubated Heparin was reversed Venous sheaths were removed and hemostasis assured, Vascade sheaths used PROCEDURES PERFORMED Diagnostic EP study CS pacing and recording Left and right transseptal catheterization Catheter the mapping of the tachycardia (NOT 3D mapping) Intracardiac echocardiography Pulmonary vein isolation with transseptal and comprehensive EPS, [id number] Drug Infusion +[id number]
[2021-01-24] MEDS ORDERED: ACETAMINOPHEN IV (For NPO) 1,000 MG in EMPTY BAG 1 BAG IVPB ONE (19:00)
--- NOTE | 2021-01-24 19:00 | P.PRLE ---
RE: Eva De Anda Dear Dr. Leonardo De Anda has recurrent episodes of atrial fibrillation associated with chest discomfort and dizziness despite being on flecainide 100 mg twice daily along with metoprolol We have documented breakthrough episodes with RVR during symptomatic episodes Today she underwent cryoablation of the pulmonary veins for management of atrial fibrillation, successfully In the next 4-6 weeks I will reduce the dose of flecainide to 50 mgs twice daily She should continue anticoagulation Thank you for entrusting me with the care of the patient Warm regards Sincerely Gentry Redmond
[2021-01-24] MEDS: SODIUM CHLORIDE 0.9% 1,000 ML IV SCH (20:07)
[2021-01-24] MEDS: LACTATED RINGERS 1,000 ML IV SCH ×2 (20:07→23:04)
[2021-01-24] MEDS ORDERED: PANTOPRAZOLE 40 MG TABLET PO SCH (21:00)
[2021-01-24] MEDS ORDERED: RIVAROXABAN 20 MG TAB PO SCH (21:00)
[2021-01-24] MEDS ORDERED: ATORVASTATIN 20 MG TAB PO SCH (21:00)
[2021-01-24] MEDS: GABAPENTIN 300 MG CAP PO SCH (22:53)
[2021-01-24] MEDS: FLECAINIDE 50 MG TAB PO SCH (22:54)
[2021-01-25] MEDS: SODIUM CHLORIDE 0.9% 1,000 ML IV SCH (06:13)
[2021-01-25 08:24] VITALS: BP 114/58; PULSE 64; RESP 18; TEMP 97.4
[2021-01-25] MEDS: GABAPENTIN 300 MG CAP PO SCH (08:28)
[2021-01-25] MEDS: FLECAINIDE 50 MG TAB PO SCH (08:28)
--- NOTE | 2021-01-25 10:01 | P.DS ---
Providers Attending physician: Gentry Amador Primary care physician: [facility] Course: INTERVAL HISTORY: The patient is a 65-year-old female with a past medical history of symptomatic paroxysmal atrial fibrillation with RVR (on Xarelto), admitted to the hospital by Dr. Amador for a planned A. fib ablation/pulmonary vein isolation of all veins using cryo-ablation on 01/24/2021. Patient seen and examined at bedside, no acute distress. She denies any chest pain or shortness of breath. Groin sites, clean, dry, 2+ peripheral pulses. Telemetry reviewed patient in sinus mechanism HR 60s-70s. PHYSICAL EXAMINATION: Blood pressure 114/58, heart rate 64, afebrile, saturations 98% on room air HEART: S1, S2 normal. LUNGS: Clear to auscultation. NECK: Supple. ABDOMEN: Soft. EXTREMITIES: 2+ peripheral pulses. LAB DATA: WBC 8.0, hemoglobin 12.7, platelets 296, sodium 139, potassium 4.2, BUN 17, serum creatinine 0.8 FINAL IMPRESSION: 1. Paroxysmal Atrial fibrillation, symptomatic, refractory to therapy s/p successful A. fib ablation/pulmonary vein isolation of all veins using cryo- ablation on 01/24/2021 2. Preserved LV size and systolic function 3. Dyslipidemia PLAN: Patient may be able to be discharged home today. We will make him a follow-up appointment with Dr. Amador in 2 weeks. Continue all home scheduled medications. Continue Xarelto 20mg nightly. Plan - Discharge Summary Discharge Rx Participant: No New Discharge Prescriptions: Continue Albuterol Sulfate [Proair Hfa] 2 puff INHALATION Q6HR PRN PRN Reason: Shortness Of Breath Esomeprazole Magnesium [NexIUM] 40 mg PO HS Gabapentin [Neurontin] 300 mg PO TID rOPINIRole HCL [Requip] 1 mg PO BID Cetirizine HCl [Zyrtec] 10 mg PO DAILY Atorvastatin [Lipitor] 20 mg PO HS Rivaroxaban [Xarelto] 20 mg PO HS Ferrous Sulfate [Iron (65 MG Elemental)] 325 mg PO DAILY Flecainide Acetate 100 mg PO BID Cbd Oil 50 mg PO DAILY Metoprolol Succinate (ER) [Toprol XL] 50 mg PO 1200 Cholecalciferol (Vitamin D3) [Vitamin D3 (4,000 Iu)] 2,000 unit PO DAILY Calcium/Magnesium/Zinc [Yyuxoew-Cralznmla-Mnvv Tablet] 1 each PO DAILY Furosemide [Lasix] 20 mg PO DAILY PRN PRN Reason: Edema ALPRAZolam [Xanax] 0.25 mg PO DAILY PRN PRN Reason: Anxiety Melatonin 30 mg PO HS Discharge Medication List Albuterol Sulfate [Proair Hfa] 2 puff INHALATION Q6HR PRN 07/24/14 [History] Esomeprazole Magnesium [NexIUM] 40 mg PO HS 07/24/14 [History] Gabapentin [Neurontin] 300 mg PO TID 03/14/18 [History] Atorvastatin [Lipitor] 20 mg PO HS 07/22/18 [History] Cetirizine HCl [Zyrtec] 10 mg PO DAILY 07/22/18 [History] rOPINIRole HCL [Requip] 1 mg PO BID 07/22/18 [History] Ferrous Sulfate [Iron (65 MG Elemental)] 325 mg PO DAILY 08/19/18 [History] Rivaroxaban [Xarelto] 20 mg PO HS 08/19/18 [History] Flecainide Acetate 100 mg PO BID 09/14/18 [History] Cbd Oil 50 mg PO DAILY 10/06/19 [History] Calcium/Magnesium/Zinc [Txhkujc-Rmkpgzusa-Kknv Tablet] 1 each PO DAILY 06/09/20 [History] Cholecalciferol (Vitamin D3) [Vitamin D3 (4,000 Iu)] 2,000 unit PO DAILY 06/09/20 [History] Furosemide [Lasix] 20 mg PO DAILY PRN 06/09/20 [History] Metoprolol Succinate (ER) [Toprol XL] 50 mg PO 1200 06/09/20 [History] ALPRAZolam [Xanax] 0.25 mg PO DAILY PRN 01/21/21 [History] Melatonin 30 mg PO HS 01/21/21 [History] Follow up Appointment(s)/Referral(s): Gentry Amador MD [STAFF PHYSICIAN] - 2 Weeks (Follow Dr. Amador/Maritza Ratliff within the next 2 weeks Office will call with appointment time and date.) Activity/Diet/Wound Care/Special Instructions: Post EP study - Ablation instructions 1. Keep access sites dry for 2 days. 2. No heavy lifting or straining for 2 days. 3. Avoid bending the hips repeatedly for 2 days. 4. You may go up and down stairs slowly Call if the following is noted 1. Bleeding, increasing swelling or pain at the access sites. 2. Increasing chest discomfort, especially upon taking a deep breath. 3. Increasing shortness of breath, at rest or with exertion. 4. Undue cough / phlegm 5. Difficulty or pain while swallowing. 6. Pain or change in color in the extremities. 7. Fever, chills, rigors. 8. Increasing headache or neurologic symptoms. 9. Dizziness, fainting, palpitations Continue ELIQUIS Continue all other cardiac medications Discharge Disposition: HOME SELF-CARE
[2021-01-25] MEDS ORDERED: METOPROLOL SUCCINATE (ER) 50 MG TAB.ER.24H PO SCH (12:00)
== END 2021-01-25 11:20 | disposition home or self-care (01) ==
LOC: CATHEP 11:58 → 6NMEDSUR 18:40 → CATHEP 01-25 11:20
PROVIDERS: ATTEND Internal Medicine Clinical Cardiac Electrophysiology
DX: I48.0 Paroxysmal atrial fibrillation (principal); E78.5 Hyperlipidemia, unspecified; I10 Essential (primary) hypertension; I25.2 Old myocardial infarction; F31.9 Bipolar disorder, unspecified; F41.9 Anxiety disorder, unspecified; K21.9 Gastro-esophageal reflux disease without esophagitis; J45.909 Unspecified asthma, uncomplicated; Z82.49 Family history of ischemic heart disease and other diseases of the circulatory system; Z88.5 Allergy status to narcotic agent; Z82.3 Family history of stroke; Z88.8 Allergy status to other drugs, medicaments and biological substances; Z79.899 Other long term (current) drug therapy; Z79.01 Long term (current) use of anticoagulants; Z88.2 Allergy status to sulfonamides
CPT/HCPCS: 93623; 93662; 93609; 93656; 80048; 85025; C1894 ×2; C1769 ×4; C1760; C1759; C1893; C1733; C1766; C1730; J2250; J1644 ×2; J2001; J3010; J0131; J0330; J2704; Q9967

== ENCOUNTER → 2021-03-21 | Outpatient (CLI) | payer MEDICARE, OTHER ==
[2021-03-21 22:48] LABS: Protein, Total 6.3 g/dL (6.2-8.2)
[2021-03-21 22:50] LABS: Reticulocyte % 0.93 % (0.10-1.80)
[2021-03-21 23:27] LABS: ALT 12 U/L (8-44); AST 20 U/L (13-35); African American GFR (CKD) 78.6 (60.0-200.0); Albumin 3.4 g/dL (3.8-4.9); Albumin/Globulin Ratio 1.11 (1.60-3.17); Alkaline Phosphatase 141 U/L (41-126); BUN/Creat Ratio 13.18 Ratio (12.00-20.00); Blood Urea Nitrogen 11.9 mg/dL (9.0-27.0); C Reactive Protein <0.30 mg/dL (0.00-0.80); Calcium 8.9 mg/dL (8.7-10.3); Carbon Dioxide 22.5 mmol/L (20.0-27.5); Chloride 107 mmol/L (96-109); Ferritin 9.1 ng/mL (10.0-291.0); Glucose 99 mg/dL (70-110); Iron 20 ug/dL (50-170); Non-African American GFR(CKD) 67.8 (60.0-200.0); Potassium 4.4 mmol/L (3.5-5.5); Sodium 142 mmol/L (135-145); Total Bilirubin <0.20 mg/dL (0.30-1.20); Total Iron Binding Capacity 455 ug/dL (228-460); Total Protein 6.4 g/dL (6.2-8.2); Vitamin B12 <150.0 pg/mL (200.0-944.0)
[2021-03-22 13:19] LABS: Albumin 2.94 g/dL (3.80-4.90); Gamma Globulin 0.55 g/dL (0.70-1.50)
== END | disposition home or self-care (01) ==
LOC: LABWHC1 15:58
PROVIDERS: ATTEND Psychiatry & Neurology Neurology
DX: R53.1 Weakness (principal)
CPT/HCPCS: 36415; 80053; 82306; 82607; 82728; 82746; 83540; 83550; 84165; 84439; 84443; 85045; 85652; 86140

== ENCOUNTER → 2021-07-15 | Outpatient (CLI) | payer MEDICARE, OTHER ==
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
--- NOTE | 2021-07-19 17:34 | MM ---
Reason for Exam: Screening (asymptomatic). Last mammogram was performed 1 year(s) and 2 month(s) ago. Patient History: Menarche at age 12. First Full-Term at age 19. Right ovary removed at age 42. Hysterectomy at age 42. Postmenopausal. 11/28/2018, Benign Core Biopsy on the right side. Risk Values: Alysia 5 year model risk: 1.5%. NCI Lifetime model risk: 6.1%. Film Views: Bilateral CC views were taken. Bilateral MLO views were taken. Prior Study Comparison: 11/28/2018 Right Diagnostic Mammogram, [facility]. 08/06/2019 Right Diagnostic Mammogram, [facility]. 05/06/2020 Bilateral Screening Mammogram, [facility]. Tissue Density: There are scattered fibroglandular densities. Findings: Analyzed By CAD. Chronic nodularity posterior upper-outer quadrant right breast. Microclip lateral posterior right breast from prior biopsy. No significant change from prior exams. Overall Assessment: Benign, BI-RAD 2 Management: Screening Mammogram of both breasts in 1 year. A clinical breast exam by your physician is recommended on an annual basis and results should be correlated with mammographic findings. Also, the patient should continue monthly self breast exams. Electronically signed and approved by: Jodi Urban M.D. Radiologist
== END | disposition home or self-care (01) ==
LOC: RADMAMWWP 10:45
PROVIDERS: ATTEND Family Medicine
DX: Z12.31 Encounter for screening mammogram for malignant neoplasm of breast (principal); M85.9 Disorder of bone density and structure, unspecified; M85.851 Other specified disorders of bone density and structure, right thigh; M85.852 Other specified disorders of bone density and structure, left thigh; Z78.0 Asymptomatic menopausal state
CPT/HCPCS: 77063; 77067; 77080

== ENCOUNTER 2022-02-02 09:30 | Day surgery (SDC) | payer MEDICARE, OTHER ==
[2022-02-01 08:28] VITALS: BMI 32.2
[~2022-02-02 09:30] MED LIST changes: -HYDROmorphone 0.5 MG/0.5 ML SYRINGE IVP PRN; +LACTATED RINGERS 1,000 ML IV SCH
[2022-02-02 10:32] VITALS: TEMP 96.9
[2022-02-02 10:32] LABS: Glucose,Whole Blood 94 mg/dL (70-110)
[2022-02-02] MEDS ORDERED: LIDOCAINE 2% INJ 20 MG/ML (2 ML VIAL) ONE (10:55)
[2022-02-02] MEDS ORDERED: PROPOFOL 10 MG/ML 20 ML VIAL IV ONE (10:55)
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
--- NOTE | 2022-02-02 11:16 | P.OP ---
Date of Procedure: 02/02/22 Preoperative Diagnosis: Anemia GI bleed Postoperative Diagnosis: Normal colonoscopy Procedure(s) Performed: Colonoscopy Anesthesia: MAC Surgeon: Luis Castro Pathology: none sent Condition: stable Disposition: PACU Description of Procedure: Patient's placed on the endoscopy table lateral position. She received IV sedation. Digital rectal exam performed. This revealed no abnormalities. Flexible colonoscope was then placed patient anus passed throughout the entire colon. The cecum was not visualized well secondary to poor colon prep. The visualized right colon appeared normal. The transverse colon appeared normal. In the descending and; was a few scattered diverticuli. The scope was then brought back the rectum this appeared normal. Scope withdrawn for patient. There is no evidence of any lower GI bleed. If the patient's in the process she will need a EGD.
[2022-02-02 11:22] VITALS: RESP 16
[2022-02-02 11:37] VITALS: BP 124/81; PULSE 67
== END 2022-02-02 11:54 | disposition home or self-care (01) ==
LOC: ORWHC2ENDO 09:30
PROVIDERS: ATTEND Surgery
DX: K92.2 Gastrointestinal hemorrhage, unspecified (principal); D64.9 Anemia, unspecified; I48.91 Unspecified atrial fibrillation; J45.909 Unspecified asthma, uncomplicated; K21.9 Gastro-esophageal reflux disease without esophagitis; E78.5 Hyperlipidemia, unspecified; I10 Essential (primary) hypertension; M19.90 Unspecified osteoarthritis, unspecified site; I25.2 Old myocardial infarction; Z90.89 Acquired absence of other organs; Z98.84 Bariatric surgery status; Z90.49 Acquired absence of other specified parts of digestive tract; Z90.710 Acquired absence of both cervix and uterus; Z98.890 Other specified postprocedural states; Z96.652 Presence of left artificial knee joint; Z82.49 Family history of ischemic heart disease and other diseases of the circulatory system; Z83.6 Family history of other diseases of the respiratory system; Z88.2 Allergy status to sulfonamides; Z88.5 Allergy status to narcotic agent; Z88.6 Allergy status to analgesic agent; Z88.8 Allergy status to other drugs, medicaments and biological substances; Z79.51 Long term (current) use of inhaled steroids; Z79.01 Long term (current) use of anticoagulants; Z79.52 Long term (current) use of systemic steroids; Z79.02 Long term (current) use of antithrombotics/antiplatelets; Z79.891 Long term (current) use of opiate analgesic; Z79.899 Other long term (current) drug therapy
CPT/HCPCS: 45378; J2704; J2001

== ENCOUNTER 2022-03-13 08:06 | Day surgery (SDC) | payer MEDICARE, OTHER ==
[~2022-03-13 08:06] MED LIST changes: -LACTATED RINGERS 1,000 ML IV SCH; +SODIUM CHLORIDE 0.9% 1,000 ML IV SCH
[2022-03-13] MEDS ORDERED: SODIUM CHLORIDE 0.9% 500 ML 500 ML IV ONE (08:23)
[2022-03-13 08:35] VITALS: RESP 16; TEMP 97.5
[2022-03-13 09:08] LABS: ALT 30 U/L (4-34); AST 33 U/L (14-36); African American GFR (CKD) >90 (>60 ml/min/1.73 sqM); Albumin 3.6 g/dL (3.5-5.0); Alkaline Phosphatase 102 U/L (38-126); Anion Gap 3 mmol/L; Blood Urea Nitrogen 17 mg/dL (7-17); Calcium 8.6 mg/dL (8.4-10.2); Carbon Dioxide 29 mmol/L (22-30); Chloride 108 mmol/L (98-107); Glucose 96 mg/dL (74-99); Non-African American GFR(CKD) 81 (>60 ml/min/1.73 sqM); Potassium 4.3 mmol/L (3.5-5.1); Sodium 140 mmol/L (137-145); Total Bilirubin 0.5 mg/dL (0.2-1.3); Total Protein 6.4 g/dL (6.3-8.2)
[2022-03-13] MEDS ORDERED: IV FLUID CONTINUATION 500 ML IV ONE (12:35)
[2022-03-13] MEDS ORDERED: LIDOCAINE 1% INJ 10MG/ML (30 ML VIAL-PF) SQ ONE ×2 (12:40→12:41)
[2022-03-13] MEDS ORDERED: MIDAZOLAM 2 MG/2 ML VIAL IV ONE (12:43)
[2022-03-13] MEDS ORDERED: fentaNYL (PF) 50 MCG/ML 2 ML AMP IV ONE (12:44)
--- NOTE | 2022-03-13 13:10 | P.EPPROC ---
- EP Procedure Note Electrophysiology Procedure Note: Procedure: Loop explant under sedation and local anesthesia. Diagnosis: Loop monitor at [facility] Patient was brought to the EP lab in a fasting state. Written informed consent was obtained prior to the procedure. The subcutaneous device was successfully explanted under local anesthesia. Preoperative antibiotics were administered. The wound was closed in layers and dressed per protocol. Result: Successful loop monitor explantation. Loop monitor implant Primary physicians: Dr. Cabral [employer] Taper: Dr. Amador Indication: Recurrent dizzy spells even while sitting, recurrent palpitations Patient was brought to the EP lab in a fasting state. Written informed consent was obtained prior to the procedure. The left pectoral area was prepped and draped per protocol. Intravenous antibiotic was administered preoperatively. A subcutaneous Loop monitor was implanted successfully and the wound was closed per protocol. The device was programmed to detect significant capri- arrhythmic and tachy-arrhythmic events, per protocol. Device and programming details: Syncope protocol Patient underwent EP procedure under conscious sedation/moderate sedation, monitoring of the level of consciousness and physiologic parameters including but not limited to vital signs and oxygenation. Patient tolerated the procedure well without any acute complications. Start time: 1239 Stop time: 1301
--- NOTE | 2022-03-13 13:11 | P.PRLE ---
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
[2022-03-13 15:05] VITALS: BP 141/71; PULSE 69
[2022-03-13 17:11] LABS: Chol/HDL Ratio 2.08 Ratio; LDL Cholesterol,Calculated 65.3 mg/dL (0.0-131.0); VLDL Calculation 15.14 mg/dL (5.00-40.00)
--- NOTE | 2022-03-13 19:29 | P.EPPROC ---
- EP Procedure Note Electrophysiology Procedure Note: Diagnosis Recurrent dizzy spells and palpitations Twelve-lead EKG Sinus rhythm normal CA narrow QRS normal ST segments Normal QT interval No delta waves, no epsilon waves Tilt table test per protocol Baseline blood pressure 127/61 mmHg, Baseline heart rate 65 beats a minute Patient was tilted upright at an angle of 70 per protocol She had several episodes of dizziness through the procedure well without any significant change in blood pressure heart rate There was one episode of lightheadedness associated with nausea and a blood pressure of 106/60 mmHg without any change in heart rate However the episode passed and no other blood pressure changes noted Impression Normal heart rate and blood pressure response to upright tilting 1 episode of mild drop in blood pressure to 106 L of mercury with nausea and dizziness No syncope Normal twelve-lead EKG
== END 2022-03-13 14:17 | disposition home or self-care (01) ==
LOC: CATHEP 08:06
PROVIDERS: ATTEND Internal Medicine Clinical Cardiac Electrophysiology
DX: R55 Syncope and collapse (principal); Z95.818 Presence of other cardiac implants and grafts; I48.0 Paroxysmal atrial fibrillation; I10 Essential (primary) hypertension
CPT/HCPCS: 33286 ×2; 93660; 33285; 80053; 80061; 84443; C1764; J2250; J0690; J2001; J3010

== ENCOUNTER → 2022-07-18 | Outpatient (CLI) | payer MEDICARE ==
--- NOTE | 2022-07-19 19:12 | MM ---
Reason for Exam: Screening (asymptomatic). Last screening mammogram was performed 12 month(s) ago. Patient History: Menarche at age 12. First Full-Term at age 19. Right ovary removed at age 42. Hysterectomy at age 42. Postmenopausal. 11/28/2018, Benign Core Biopsy on the right side. Risk Values: Alysia 5 year model risk: 1.6%. NCI Lifetime model risk: 5.9%. Prior Study Comparison: 08/06/2019 Right Diagnostic Mammogram, [facility]. 05/06/2020 Bilateral Screening Mammogram, [facility]. 07/15/2021 Bilateral MG 3D screening mammo w/cad, [facility]. Tissue Density: There are scattered fibroglandular densities. Findings: Analyzed By CAD. Microclip right breast from prior biopsy. Chronic nodularity upper outer quadrant right breast. There is no suspicious group of microcalcifications or new suspicious mass in either breast. Overall Assessment: Benign, BI-RAD 2 Management: Screening Mammogram of both breasts in 1 year. . Patient should continue monthly self-breast exams. A clinical breast exam by your physician is recommended on an annual basis. This exam should not preclude additional follow-up of suspicious palpable abnormalities. Note on Alysia scores and lifetime risk: 1. A Alysia score greater than 3% is considered moderate risk. If this is the case, consider specialist referral to assess eligibility for a risk reducing agent. 2. If overall lifetime risk for the development of breast cancer is 20% or higher, the patient may qualify for future screening with alternating mammogram and breast MRI. Electronically signed and approved by: Jodi Urban M.D. Radiologist
== END | disposition home or self-care (01) ==
LOC: RADMAMWWP 09:09
PROVIDERS: ATTEND Family Medicine
DX: Z12.31 Encounter for screening mammogram for malignant neoplasm of breast (principal); Z78.0 Asymptomatic menopausal state
CPT/HCPCS: 77063; 77067

== ENCOUNTER → 2023-07-27 | Outpatient (CLI) | payer MEDICARE ==
--- NOTE | 2023-07-30 13:17 | MM ---
Reason for Exam: Screening (asymptomatic). Last mammogram was performed 1 year(s) and 1 month(s) ago. Patient History: Menarche at age 12. First Full-Term at age 19. Right ovary removed at age 42. Hysterectomy at age 42. Postmenopausal. 11/28/2018, Benign Core Biopsy on the right side. Risk Values: Alysia 5 year model risk: 1.6%. NCI Lifetime model risk: 5.7%. Prior Study Comparison: 05/06/2020 Bilateral Screening Mammogram, [facility]. 07/15/2021 Bilateral MG 3D screening mammo w/cad, [facility]. 07/18/2022 Bilateral MG 3D screening mammo w/cad, [facility]. Tissue Density: There are scattered areas of fibroglandular density. Findings: Analyzed By CAD. There is no suspicious group of microcalcifications or new suspicious mass in either breast. Overall Assessment: Negative, BI-RAD 1 Management: Screening Mammogram of both breasts in 1 year. . Patient should continue monthly self-breast exams. A clinical breast exam by your physician is recommended on an annual basis. This exam should not preclude additional follow-up of suspicious palpable abnormalities. Note on Alysia scores and lifetime risk: 1. A Alysia score greater than 3% is considered moderate risk. If this is the case, consider specialist referral to assess eligibility for a risk reducing agent. 2. If overall lifetime risk for the development of breast cancer is 20% or higher, the patient may qualify for future screening with alternating mammogram and breast MRI. Electronically signed and approved by: Ash Mooney M.D. Radiologis
== END | disposition home or self-care (01) ==
LOC: RADMAMWWP 11:46
PROVIDERS: ATTEND Family Medicine
DX: Z12.31 Encounter for screening mammogram for malignant neoplasm of breast (principal); Z78.0 Asymptomatic menopausal state
CPT/HCPCS: 77063; 77067

== ENCOUNTER → 2024-08-29 | Outpatient (CLI) | payer MEDICARE ==
[2024-08-29 08:36] LABS: African American GFR (CKD) >90 (>60 ml/min/1.73 sqM); Blood Urea Nitrogen 14 mg/dL (7-17); Non-African American GFR(CKD) 79 (>60 ml/min/1.73 sqM)
--- NOTE | 2024-08-29 10:15 | CT ---
EXAMINATION TYPE: CT abdomen pelvis w con CT DLP: 1203.1 mGycm, Automated exposure control for dose reduction was used. DATE OF EXAM: 08/29/2024 9:13 AM COMPARISON: None CLINICAL INDICATION:Female, 69 years old with history of R10.9 UNSPECIFIED ABDOMINAL PAIN; abd pain TECHNIQUE: Standard CT of the abdomen and pelvis following the administration of 100 cc of Isovue 3 00 IV contrast material. Coronal and sagittal reformats were performed. FINDINGS: LOWER CHEST: Unremarkable ABDOMEN LIVER: Unremarkable GALLBLADDER AND BILE DUCTS: The gallbladder is not visualized and appears to be surgically absent. No biliary ductal dilatation. PANCREAS: Unremarkable. SPLEEN: Unremarkable. ADRENAL GLANDS: Unremarkable. KIDNEYS AND URETERS: No evidence of hydronephrosis or renal calculus. The kidneys enhance symmetrica lly. Contrast is demonstrated within both collecting systems and proximal ureters on the delayed phas e. PELVIS BLADDER: Underdistended but grossly unremarkable. REPRODUCTIVE: The uterus is surgically absent. 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 No focal bowel wall thickening or surrounding inflammatory changes. No evidence of bowel obstruction. PERITONEUM: No evidence of pneumoperitoneum or free fluid. VASCULATURE: No evidence of aortic aneurysm. Several pelvic phleboliths. MUSCULOSKELETAL: No acute osseous abnormalities. Fatty atrophy of the right rectus abdominous muscle. There are 6 lumbar type vertebral bodies. Postsurgical changes with bilateral pedicle screws and cristiane s and intervertebral disc spacer involving the L4-L5 vertebral bodies. Vertebral cement involving the L4 vertebral body. Multilevel degenerative disc disease with prominent Schmorl's nodes. Left posteri or lower back spinal stimulator device with leads entering the spinal canal at the T12-L1 interspinou s space extending into the thoracic spinal canal. LYMPH NODES: No evidence for lymphadenopathy. SOFT TISSUE/ABDOMINAL WALL: Unremarkable IMPRESSION: No CT evidence for acute abdominal/pelvic process. [facility], , 08/29/2024 10:13 AM
== END | disposition home or self-care (01) ==
LOC: RADCTMAIN 07:57
PROVIDERS: ATTEND Student in an Organized Health Care Education/Training Program
DX: R10.9 Unspecified abdominal pain (principal)
CPT/HCPCS: 82565; 84520; 74177; 36415; Q9967